=== PATIENT | male | born 1935 | race Caucasian/White ===

== ENCOUNTER 2018-04-13 07:57 | Inpatient (IN) | payer OTHER ==
[~2018-04-13] VITALS: Ht 177.8 cm; Wt 97.7 kg
[~2018-04-13 07:57] MED LIST: ASPI325; ASPI325 PO; ATEN25 PO; ATENOLOL 25 MG PO; BISA10S PR; CEFP200; CEPH250A PO; CHLO25B PO; Chlorthalidone25 MG PO; DOCU100 PO; FISH OIL 1,0001 EAC1 PO; GABA100 PO; GABA300 PO; Hair, Skin & N1 EACH PO; INSULANPEN SC; Klor-Con 1010 MEQ PO; LEVSOD100 PO; MEMA10 PO; METF500C PO; MIRALAX17 GM PO; MULVITMIND PO; POTA10T PO; RANI150; ROSU5 PO; SACC250C; SIMVASTATIN 20 MG PO; Simvastatin10 MG PO; TAMS.4ER PO
[2018-04-13 08:52] LABS: Source, Urine Catheter
[2018-04-13 09:08] LABS: Albumin, Blood 3.3 g/dL (3.4-5.0); Albumin/Globulin Ratio 0.9 (0.8-1.8); Bilirubin, Total 0.8 mg/dL (0.1-1.0); Bun/Creatinine Ratio 15.8 (12.0-20.0); Calcium, Blood 8.7 mg/dL (8.5-10.1); Creatinine, Blood 1.46 mg/dL (0.60-1.20); Globulin, Blood 3.6 g/dL (2.2-4.0); Potassium, Blood 4.3 mmol/L (3.5-5.5); Total Protein, Blood 6.9 g/dL (6.4-8.2)
[2018-04-13 09:08] LABS: Appearance, Urine Turbid (Clear); Bilirubin, Urine Neg (Neg); Blood, Urine 3+ (Neg); Color, Urine Yellow (P-Yellow); Glucose Qualitative, Urine Neg (Neg); Ketones, Urine 1+ (Neg); Leukocyte Esterase, Urine 3+ (Neg); Nitrite, Urine Pos (Neg); Protein, Urine 4+ (Neg); Specific Gravity, Urine 1.015 (1.003-1.022); Urobilinogen, Urine NORM (Normal)
[2018-04-13 09:20] LABS: BASOPHILS ABSOLUTE AUTO 0.06 K/mm3 (0.00-0.23); BASOPHILS PERCENT AUTO 0 % (0-2); EOSINOPHILS PERCENT AUTO 1 % (0-6); Hemoglobin 17.6 g/dL (13.5-17.5); IMMATURE GRAN ABSOLUTE AUTO 0.07 K/mm3 (0.00-0.10); IMMATURE GRAN PERCENT AUTO 0 % (0-1); LYMPHOCYTES ABSOLUTE AUTO 2.22 K/mm3 (0.84-5.20); LYMPHOCYTES PERCENT AUTO 14 % (21-46); MONOCYTES ABSOLUTE AUTO 1.38 K/mm3 (0.16-1.47); MONOCYTES PERCENT AUTO 9 % (4-13); Mean Corpuscular HGB 29.2 pg (26.0-34.0); Mean Corpuscular HGB Conc 32.6 g/dL (31.5-36.5); Mean Corpuscular Volume 90 fL (80-100); Mean Platelet Volume 11.2 fL (9.1-12.4); NEUTROPHILS ABSOLUTE AUTO 11.93 K/mm3 (1.96-9.15); NEUTROPHILS PERCENT AUTO 75 % (41-73); Platelet Count 286 K/mm3 (150-400); RDW Coefficient Variation 13.8 % (11.7-14.2); RDW Standard Deviation 45.3 fL (35.1-46.3); Red Blood Cell Count 6.03 M/mm3 (4.30-5.90); White Blood Cell Count 15.86 K/mm3 (4.00-11.30)
[2018-04-13 09:25] LABS: Amorphous Mod (0-Heavy); Bacteria Mod /hpf; Squamous Epithelial Cells Rare /hpf (Few); White Blood Cells, Urine 25-50 /hpf (0-5)
[2018-04-13 09:26] LABS: Triple Phosphate Crystals Many /hpf
--- NOTE | 2018-04-13 16:34 | NUR ---
REQUESTED PT PERMISSION FOR CARE, PT NODDED ACKNOWLEDGE AND GAVE PERMISSION WELL FOR CLINICAL DAY 04/14/18 PM SHIFT.
--- NOTE | 2018-04-13 17:33 | NUR ---
SHIFT SUMMARY PATIENT PLEASANTLY CONFUSED. HE CURRENTLY HAS IV FLUIDS HUNG AND HE IS IN SOFT WRIST RESTRAINTS. HE IS PLEASANT, AND WILL NEED CONTINUED MONITORING. HE DOES GET COMBATIVE, TRYING TO TALK PATIENT THROUGH ANY PROCEDURES. HE DOES NOT COMMUNICATE VERBALLY WITH SENTENCES. HE DOES A LOT OF REPEATING. WILL MONITOR FOR CHANGES. PATIENT HAS CHRONIC LLOYD.
--- NOTE | 2018-04-13 20:54 | NUR ---
PT'S BLOOD PRESSURE ELEVATED AT 177/113 AND HR CONTINUES TO BE IN THE 130'S. LACTIC ACID TODAY ELEVATED AT 3.0 AT 1300. UP FROM FIRST DRAW OF 2.6. APPEARS IN CHARTING THAT PT ONLY RECIEVED 1 L FOR SEPSIS PROTOCOL IN ED. CALL MADE TO JERRI MENDOZA. PT HAD BEEN DISCHARGED W/ ORDERS FOR METPROLOL TARTRATE 12.5 MG BID AND PT HAD NOT BEEN RECIEVING. ORDERS TO RESTART METOPROLOL THIS EVENING, GIVE A DOSE OF 10 MG IV HYDRALAZINE, AND 1 L NS BOLUS. WILL ADMINISTER ONCE VERIFIED BY PHARMACY AND CONTINUE TO MONITOR.
[2018-04-14 02:33] LABS: BASOPHILS ABSOLUTE AUTO 0.08 K/mm3 (0.00-0.23); BASOPHILS PERCENT AUTO 0 % (0-2); EOSINOPHILS ABSOLUTE AUTO 0.02 K/mm3 (0.00-0.68); EOSINOPHILS PERCENT AUTO 0 % (0-6); Hematocrit 50.7 % (37.0-53.0); IMMATURE GRAN ABSOLUTE AUTO 0.24 K/mm3 (0.00-0.10); IMMATURE GRAN PERCENT AUTO 1 % (0-1); LYMPHOCYTES ABSOLUTE AUTO 1.67 K/mm3 (0.84-5.20); LYMPHOCYTES PERCENT AUTO 8 % (21-46); MONOCYTES ABSOLUTE AUTO 2.04 K/mm3 (0.16-1.47); MONOCYTES PERCENT AUTO 9 % (4-13); Mean Corpuscular HGB Conc 33.5 g/dL (31.5-36.5); Mean Corpuscular Volume 90 fL (80-100); Mean Platelet Volume 10.9 fL (9.1-12.4); NEUTROPHILS ABSOLUTE AUTO 17.96 K/mm3 (1.96-9.15); NEUTROPHILS PERCENT AUTO 82 % (41-73); Platelet Count 305 K/mm3 (150-400); RDW Coefficient Variation 14.2 % (11.7-14.2); RDW Standard Deviation 46.3 fL (35.1-46.3); Red Blood Cell Count 5.66 M/mm3 (4.30-5.90); White Blood Cell Count 22.01 K/mm3 (4.00-11.30)
[2018-04-14 02:35] LABS: Albumin, Blood 3.1 g/dL (3.4-5.0); Anion Gap 9 mmol/L (6-16); Blood Urea Nitrogen 21 mg/dL (8-24); Bun/Creatinine Ratio 12.7 (12.0-20.0); CO2, Blood 20 mmol/L (21-32); Calcium, Blood 8.2 mg/dL (8.5-10.1); Chloride, Blood 118 mmol/L (98-108); Creatinine, Blood 1.65 mg/dL (0.60-1.20); Glomerular Filtration Rate 43 (60-); Glucose, Blood 181 mg/dL (70-99); Phosphorus, Blood 1.4 mg/dL (2.5-4.9); Potassium, Blood 3.8 mmol/L (3.5-5.5); Sodium, Blood 147 mmol/L (136-145)
--- NOTE | 2018-04-14 03:43 | NUR ---
SHIFT SUMMARY PT HAS LATER STAGES OF DEMENTIA, ONLY ORIENTED TO SELF. MINIMALLY VERBAL, MOST OFTEN HIS SPEECH DOESN'T MAKE SENSE. APPARENTLY THIS IS PT'S BASELINE. PT ALSO BEDBOUND AT BASELINE. PT HAS BEEN IN BED SINCE ARRIVAL. TURNED AND CHANGED NEEDED. LLOYD CATHETER IN PLACE, DRAINING DARK, CLOUDY, THICK URINE. LEAKS SLIGHTLY FROM INSERTION POINT BUT PT HAD PREVIOUSLY BEEN PULLING ON HIS CATHETER AND IT LOOKS IF THERE IS SOME PENILE DAMAGE FROM THIS. PENIS AND SCROTUM BOTH RED AND PENIS HAS SOME DISCHARGE. NO BLOOD NOTED. PT IS IN BILATERAL WRIST RESTRAINTS DUE TO HIS CONFUSION AND PT PULLS ON LINES AND TELEMETRY. PT DIAPHORETIC AT TIMES, HOWEVER TEMPERATURE IN THE LOW 99'S THROUGHOUT THE SHIFT. PT TACHYCARDIC AND HYPERTENSIVE AT START OF SHIFT, SOME CONCERN ALSO WITH LACTIC ACID TRENDING UP. SEE NOTE. AFTER HOME DOSE OF METOPROLOL 12.5 MG PO, 10 MG APRESOLINE, 1 L NS BOLUS, AND FINALLY A DOSE OF 10 MG IV LABETALOL PT'S BLOOD PRESSURE IMPROVED TO 143/90 AND HR CAME DOWN FROM THE 120'S-130'S TO 105. LACTIC ACID ALSO IMPROVED TO 2.5 AND THEN TO WNL AT 2.0. PT AWAKE MUCH OF THE NIGHT, FIDGETS AND PULLS ON ANYTHING HE CAN REACH. FINALLY FELL ASLEEP APPROX 0330. RESTING IN BED AT THIS TIME. WILL CONTINUE TO MONITOR AND REPORT TO DAY RN.
--- NOTE | 2018-04-14 12:15 | NUR ---
TALKED TO ABOUT CONTINUING RESTRAINTS. OK TO REORDER.
[2018-04-14 14:47] LABS: Source, Urine Catheter
[2018-04-14 14:58] LABS: Appearance, Urine Cloudy (Clear); Bilirubin, Urine Neg (Neg); Blood, Urine 5+ (Neg); Color, Urine Yellow (P-Yellow); Glucose Qualitative, Urine Neg (Neg); Ketones, Urine 1+ (Neg); Leukocyte Esterase, Urine 3+ (Neg); Nitrite, Urine Pos (Neg); Protein, Urine 3+ (Neg); Specific Gravity, Urine 1.015 (1.003-1.022); Urobilinogen, Urine NORM (Normal)
[2018-04-14 15:20] LABS: Bacteria Many /hpf; Red Blood Cells, Urine TNTC /hpf (0-2); Squamous Epithelial Cells Not Seen /hpf (Few); White Blood Cells, Urine TNTC /hpf (0-5)
--- NOTE | 2018-04-14 15:43 | NUR ---
BLADDER IRRIGATED WITH 500 ML NACL TO ALMOST CLEAR. TOLERATED WELL.
--- NOTE | 2018-04-14 17:56 | NUR ---
PATIENT ALERT TO SELF AND FAMILY AND SOMETIMES WHERE HE IS. LLOYD CHANGED OUT AND IRRIGATED WITH URINE SAMPLE SENT TO LAB PER PROTOCOL. WRIST RESTRAINTS RENEWED PATIENT HANDS GO TO LINES AND HE TRIES TO PULL WHEN RESTRAINTS ARE LOOSENED. PER PHARM. FLOMAX CAN BE OPENED AND PUT INTO ACID JUICE(O.J. OR GRAPE) OR IN YOGURT FOR THOSE WHO NEED MEDS CRUSHED. SOMETIMES ANSWERS QUESTIONS APPROPRIATELY, OTHER TIMES WORDS ARE JUMBLED. IV'S PATENT. LLOYD PATENT AND NOT LEAKING. BED IN LOW POSITION. CALL LIGHT WITHIN REACH. TELE ON. WILL CONTINUE TO MONITOR.
--- NOTE | 2018-04-15 05:05 | NUR ---
SHIFT SUMMARY PT HAS SLEPT THROUGHOUT SHIFT. PT GABINO IS FLOWING FINE. PT IS STILL IN WRIST RESTRAINTS. NO ACUTE ISSUES NOTED. PT CURRENTLY SLEEPING. CALL LIGHT IN REACH.
[2018-04-15 09:41] LABS: BASOPHILS ABSOLUTE AUTO 0.05 K/mm3 (0.00-0.23); BASOPHILS PERCENT AUTO 0 % (0-2); EOSINOPHILS ABSOLUTE AUTO 0.85 K/mm3 (0.00-0.68); EOSINOPHILS PERCENT AUTO 7 % (0-6); Hematocrit 46.4 % (37.0-53.0); Hemoglobin 14.7 g/dL (13.5-17.5); IMMATURE GRAN ABSOLUTE AUTO 0.07 K/mm3 (0.00-0.10); IMMATURE GRAN PERCENT AUTO 1 % (0-1); LYMPHOCYTES ABSOLUTE AUTO 2.07 K/mm3 (0.84-5.20); LYMPHOCYTES PERCENT AUTO 16 % (21-46); MONOCYTES ABSOLUTE AUTO 0.75 K/mm3 (0.16-1.47); MONOCYTES PERCENT AUTO 6 % (4-13); Mean Corpuscular HGB 29.4 pg (26.0-34.0); Mean Corpuscular HGB Conc 31.7 g/dL (31.5-36.5); Mean Platelet Volume 10.8 fL (9.1-12.4); NEUTROPHILS ABSOLUTE AUTO 9.19 K/mm3 (1.96-9.15); NEUTROPHILS PERCENT AUTO 71 % (41-73); Platelet Count 218 K/mm3 (150-400); RDW Coefficient Variation 14.6 % (11.7-14.2); RDW Standard Deviation 49.6 fL (35.1-46.3); White Blood Cell Count 12.98 K/mm3 (4.00-11.30)
[2018-04-15 09:43] LABS: Mean Corpuscular Volume 93 fL (80-100)
[2018-04-15 09:58] LABS: Anion Gap 7 mmol/L (6-16); Blood Urea Nitrogen 16 mg/dL (8-24); Bun/Creatinine Ratio 13.7 (12.0-20.0); CO2, Blood 21 mmol/L (21-32); Chloride, Blood 120 mmol/L (98-108); Creatinine, Blood 1.17 mg/dL (0.60-1.20); Glomerular Filtration Rate >60 (60-); Glucose, Blood 185 mg/dL (70-99); Potassium, Blood 3.4 mmol/L (3.5-5.5); Sodium, Blood 148 mmol/L (136-145)
--- NOTE | 2018-04-15 13:18 | NUR ---
INITIAL PALLIATIVE CARE CLINICAL VISIT: Introduced myself to pt and . Pt states, "I have never seen you before". I confirmed with pt that we have not met previously. Pt is sitting up in bed with soft wrist restraints on. points out that his left wrist is not actually tied to bed/secured. Pt is not actively pulling on retraints or moving about in bed. He appears anxious but not agitated. When asked if he is feeling any discomfort or pain, pt states "no". Discussed 's concerns and needs. She is very happy about pt's improvement in mentation and decreased agitation since admission on Saturday. She reports having help at home thru [employer] [facility]. She also has [facility] visiting for cath care. Her primary concern is how to get pt home when he is released. SHe has a wheelchair but is unsure if she can get him in the house. Leslye ECHOLS had been to visit and left her name on room's white board. left for Leslye re: possible need for gurney transport or assist with transport home on d/c. Pt's was leaving for lunch when I arrived. Would like to continue the conversation with her tomorrow re: goals of care and ongoing care planning if she is receptive. She feels pt is close to his baseline currently in regard to his normal level of confusion with his dementia.
--- NOTE | 2018-04-15 13:27 | NUR ---
PT GAVE ME PERMISSION TO PROVIDE CARE FOR HIM 04/16/18.
[2018-04-16 05:12] LABS: BASOPHILS ABSOLUTE AUTO 0.05 K/mm3 (0.00-0.23); BASOPHILS PERCENT AUTO 0 % (0-2); EOSINOPHILS ABSOLUTE AUTO 0.75 K/mm3 (0.00-0.68); EOSINOPHILS PERCENT AUTO 7 % (0-6); Hematocrit 44.2 % (37.0-53.0); Hemoglobin 13.8 g/dL (13.5-17.5); IMMATURE GRAN ABSOLUTE AUTO 0.05 K/mm3 (0.00-0.10); IMMATURE GRAN PERCENT AUTO 0 % (0-1); LYMPHOCYTES ABSOLUTE AUTO 2.05 K/mm3 (0.84-5.20); LYMPHOCYTES PERCENT AUTO 18 % (21-46); MONOCYTES ABSOLUTE AUTO 0.79 K/mm3 (0.16-1.47); MONOCYTES PERCENT AUTO 7 % (4-13); Mean Corpuscular HGB 29.2 pg (26.0-34.0); Mean Corpuscular HGB Conc 31.2 g/dL (31.5-36.5); Mean Corpuscular Volume 93 fL (80-100); Mean Platelet Volume 10.4 fL (9.1-12.4); NEUTROPHILS ABSOLUTE AUTO 7.75 K/mm3 (1.96-9.15); NEUTROPHILS PERCENT AUTO 68 % (41-73); Platelet Count 235 K/mm3 (150-400); RDW Coefficient Variation 14.1 % (11.7-14.2); RDW Standard Deviation 48.6 fL (35.1-46.3); Red Blood Cell Count 4.73 M/mm3 (4.30-5.90); White Blood Cell Count 11.44 K/mm3 (4.00-11.30)
--- NOTE | 2018-04-16 05:49 | NUR ---
SHIFT SUMMARY PT ADMITTED WITH SEPSIS. DNR. [facility] SOFT GROUND MEAT ADA DIET, HONEY THICK LIQUIDS. PT ON BEDREST AND PER REPORT HAS BEEN BEDBOUND FOR THE PAST 2 MONTHS. CBG AT AND H S. TELE, SINUS TACH. LOVENOX FOR DVT PROPHYLAXIS. MEDS CRUSHED. PT WAS IN RESTRAINTS BUT THEY WERE DISCONTINUED YESTERDAY. APPARENT THE PT HAD BEEN PULLING AT LINES AND CATHETER. THE PT PRESENTED TO THE ED WITH C/O PENILE PAIN, CLOUDY URINE, AND SWEATS. THE PT HAS HAD AN INDWELLING LLOYD FOR THE PAST SEVERAL MONTHS. THERE HAS BEEN CONCEARN DUE TO BLEEDING FROM THE INSERTION SITE AND IT HAS BEEN THOUGHT THAT THE PT MAY HAVE PULLED ON IT. THE URINE HAD BEEN THICK, CLOUDY, AND FOUL ODOR. 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 UNABLE TO ADMINISTER PTS JOCE MEDICATIONS. PT WAS ATTEMPTING TO SWING AT AND GRAB THIS NURSE. WAS TOLD THAT PT IS NOT COMBATIVE BUT IS VERY STRONG AND WAS HITTING AWAY THE SPOON WHEN ATTEMPTING TO GIVE FLUID PRIOR TO ADMINISTRATION MEDICATION TO ASSESS FOR SAFETY. ABLE TO GIVE 0600 MED WITHOUT INCIDENT. THE PT APPEARED TO SLEEP COMFORTABLY MOST OF THE NIGHT. NO APPARENT SIGNS OF ACUTE DISTRESS. FREQUENT VISUAL CHECKS PT IS LIKELY NOT ABLE TO MAKE NEEDS KNOWN.
[2018-04-16 06:10] LABS: Alanine Aminotransfer (ALT/SGP 37 U/L (12-78); Albumin, Blood 2.4 g/dL (3.4-5.0); Albumin/Globulin Ratio 0.7 (0.8-1.8); Alk Phos 59 U/L (50-136); Anion Gap 8 mmol/L (6-16); Aspartate Aminotrans (AST/SGOT 27 U/L (12-37); Bilirubin, Total 0.4 mg/dL (0.1-1.0); Blood Urea Nitrogen 16 mg/dL (8-24); Bun/Creatinine Ratio 14.4 (12.0-20.0); CO2, Blood 24 mmol/L (21-32); Calcium, Blood 8.1 mg/dL (8.5-10.1); Chloride, Blood 117 mmol/L (98-108); Creatinine, Blood 1.11 mg/dL (0.60-1.20); Globulin, Blood 3.4 g/dL (2.2-4.0); Glomerular Filtration Rate >60 (60-); Glucose, Blood 133 mg/dL (70-99); Potassium, Blood 3.3 mmol/L (3.5-5.5); Sodium, Blood 149 mmol/L (136-145); Total Protein, Blood 5.8 g/dL (6.4-8.2)
--- NOTE | 2018-04-16 17:26 | NUR ---
SHIFT SUMMARY- PT AXO TO SELF, FOLLOWING SIMPLE COMMANDS AND FAMILY. PT ABLE TO ANSWER YES/NO QUESTIONS. PT DENIES PAIN. DENIES SOB. RESP E/U ON RA. DENIES N/V. BEDREST. TURNS Q2H. NO INSULIN COVERAGE NEEDED THIS SHIFT. LLOYD PATENT AND DRAINING. NSR AT 92 PER PCU ALTERATION SPECIALIST. PT'S IN TO SEE HIM TODAY. PT STARTED ON D5 1/2 NS WITH 20 MEQ K AT 125ML/HR. NO OTHER SIGNIFICANT CHANGES THIS SHIFT.
--- NOTE | 2018-04-17 05:29 | NUR ---
SHIFT SUMMARY PT NOTED TO HAVE A COUGH THIS NIGHT. REPOSITIONED, ORAL CARE COMPLETED, ELEVATED HOB, WITH NO CHANGE IN APPARENT COUGH. UPON ASSESSMENT PT APPEARED TO BE CHEWING ON SOMETHING FOLLOWING COUGH, ORAL CARE COMPLETED AND ONLY THICK SALIVA NOTED WITH SOME FOOT PARTICLES. PT WAS VERY PLEASENT AND COOPERATIVE SO FAR THIS SHIFT. NO COMPATIVE OR GRABING BEHAVIORS. AT BEGINNING OF SHIFT THE APPEARED CONCEARNED AND STATED THAT DAY NURSE ATTEMPTED TO GIVE PT WHOLE PILLS AND THIN LIQUIDS. WANTED TO KNOW IF THIS NURSE KNEW THAT PT NEEDED MEDS CRUSHED, THICK LIQUIDS, AND NO STRAW. THE PTS WAS REASSURED BY TREATMENT RN AT THE TIME AND WENT HOME FOR THE DAY. THE PT APPEARS TO BE RESTING COMFORTABLY IN BED AT THIS TIME. UNABLE TO MAKE NEEDS KNOWN. FREQUENT VISUAL CHECKS.
[2018-04-17 05:30] LABS: BASOPHILS ABSOLUTE AUTO 0.03 K/mm3 (0.00-0.23); BASOPHILS PERCENT AUTO 0 % (0-2); EOSINOPHILS ABSOLUTE AUTO 0.52 K/mm3 (0.00-0.68); EOSINOPHILS PERCENT AUTO 6 % (0-6); Hemoglobin 14.5 g/dL (13.5-17.5); IMMATURE GRAN ABSOLUTE AUTO 0.04 K/mm3 (0.00-0.10); IMMATURE GRAN PERCENT AUTO 0 % (0-1); LYMPHOCYTES PERCENT AUTO 16 % (21-46); MONOCYTES ABSOLUTE AUTO 0.78 K/mm3 (0.16-1.47); MONOCYTES PERCENT AUTO 9 % (4-13); Mean Corpuscular HGB 29.8 pg (26.0-34.0); Mean Corpuscular HGB Conc 32.2 g/dL (31.5-36.5); Mean Corpuscular Volume 92 fL (80-100); Mean Platelet Volume 10.1 fL (9.1-12.4); NEUTROPHILS ABSOLUTE AUTO 6.19 K/mm3 (1.96-9.15); NEUTROPHILS PERCENT AUTO 69 % (41-73); Platelet Count 227 K/mm3 (150-400); RDW Coefficient Variation 14.2 % (11.7-14.2); RDW Standard Deviation 48.6 fL (35.1-46.3); Red Blood Cell Count 4.87 M/mm3 (4.30-5.90); White Blood Cell Count 8.96 K/mm3 (4.00-11.30)
[2018-04-17 05:55] LABS: Anion Gap 9 mmol/L (6-16); Blood Urea Nitrogen 15 mg/dL (8-24); Bun/Creatinine Ratio 13.3 (12.0-20.0); CO2, Blood 23 mmol/L (21-32); Calcium, Blood 8.2 mg/dL (8.5-10.1); Chloride, Blood 113 mmol/L (98-108); Creatinine, Blood 1.13 mg/dL (0.60-1.20); Glomerular Filtration Rate >60 (60-); Glucose, Blood 143 mg/dL (70-99); Potassium, Blood 3.2 mmol/L (3.5-5.5); Sodium, Blood 145 mmol/L (136-145)
--- NOTE | 2018-04-17 18:23 | NUR ---
SHIFT SUMMARY PT HAS HAD NO ACUTE CHANGES THIS SHIFT, MEDICATED FOR FEVER X1, PT REPORTS "I DON'T FEEL GOOD". REMAINS TO HAVE WET COUGH. REPOS Q2, SPOUSE ASSISTED W/MEALS. PT BEDRESTING W/SPOUSE AT BEDSIDE, WILL CONT TO MONITOR UNTIL REPORT GIVEN TO NOC RN.
--- NOTE | 2018-04-18 03:22 | NUR ---
SHIFT SUMMARY PT PLEASANTLY CONFUSED. SLEPT THROUGH MOST OF THE NIGHT. COUGHING IMPROVED THIS EVENING. NECTAR THICK LIQUIDS PROVIDED WHEN AWAKE. SWALLOWED PILLS CRUSHED IN APPLESAUCE. COOPERATIVE W/ CARE. LLOYD CATH REMAINS IN PLACE. DRAINING YELLOW URINE. NO SEDIMENT NOTED IN URINE. DENIES PAIN WHEN ASKED AND HAS NO NONVERBAL S/S OF PAIN. NO ACUTE CHANGES THROUGHOUT THE NIGHT. RESTING IN BED, APPEARS TO BE SLEEPING AT THIS TIME.
--- NOTE | 2018-04-18 04:45 | NUR ---
ASSUMING CARE OF PT. PT A&O TO SELF ONLY. PLEASANTLY CONFUSED, BED ALARM ON. CALL LIGHT IN REACH.
[2018-04-18 05:25] LABS: BASOPHILS ABSOLUTE AUTO 0.04 K/mm3 (0.00-0.23); BASOPHILS PERCENT AUTO 1 % (0-2); EOSINOPHILS ABSOLUTE AUTO 0.46 K/mm3 (0.00-0.68); EOSINOPHILS PERCENT AUTO 7 % (0-6); Hematocrit 45.3 % (37.0-53.0); Hemoglobin 14.5 g/dL (13.5-17.5); IMMATURE GRAN ABSOLUTE AUTO 0.03 K/mm3 (0.00-0.10); IMMATURE GRAN PERCENT AUTO 0 % (0-1); LYMPHOCYTES ABSOLUTE AUTO 1.44 K/mm3 (0.84-5.20); LYMPHOCYTES PERCENT AUTO 21 % (21-46); MONOCYTES ABSOLUTE AUTO 0.89 K/mm3 (0.16-1.47); MONOCYTES PERCENT AUTO 13 % (4-13); Mean Corpuscular HGB 29.5 pg (26.0-34.0); Mean Corpuscular Volume 92 fL (80-100); Mean Platelet Volume 9.9 fL (9.1-12.4); NEUTROPHILS ABSOLUTE AUTO 3.87 K/mm3 (1.96-9.15); NEUTROPHILS PERCENT AUTO 58 % (41-73); Platelet Count 205 K/mm3 (150-400); Red Blood Cell Count 4.91 M/mm3 (4.30-5.90); White Blood Cell Count 6.73 K/mm3 (4.00-11.30)
[2018-04-18 05:50] LABS: Alanine Aminotransfer (ALT/SGP 47 U/L (12-78); Albumin, Blood 2.5 g/dL (3.4-5.0); Albumin/Globulin Ratio 0.7 (0.8-1.8); Alk Phos 68 U/L (50-136); Anion Gap 7 mmol/L (6-16); Aspartate Aminotrans (AST/SGOT 29 U/L (12-37); Bilirubin, Total 0.5 mg/dL (0.1-1.0); Blood Urea Nitrogen 17 mg/dL (8-24); Bun/Creatinine Ratio 14.9 (12.0-20.0); CO2, Blood 26 mmol/L (21-32); Calcium, Blood 8.3 mg/dL (8.5-10.1); Chloride, Blood 111 mmol/L (98-108); Creatinine, Blood 1.14 mg/dL (0.60-1.20); Globulin, Blood 3.6 g/dL (2.2-4.0); Glomerular Filtration Rate >60 (60-); Glucose, Blood 146 mg/dL (70-99); Potassium, Blood 3.5 mmol/L (3.5-5.5); Sodium, Blood 144 mmol/L (136-145); Total Protein, Blood 6.1 g/dL (6.4-8.2)
--- NOTE | 2018-04-18 06:40 | NUR ---
SHIFT SUMMARY: NO ACUTE CHANGES SINCE ASSUMING CARE AT MID-SHIFT FROM RELIEVED RN. PT IS RESTING COMFORTABLY IN BED. RESP E/U ON RA. LLOYD CATH DRAINING AND PATENT. PLEASANTLY CONFUSED. WILL CONT TO MONITOR AND PROVIDE CARE UNTIL PRESUMED BY ONCOMING RN.
--- NOTE | 2018-04-18 16:40 | NUR ---
PT SPOUSE REPORTS THE PT IS HAVING TROUBLE BREATHING. VS 148/95 BP, HR 89, RR 24, O2 SAT 94% ON RA AND TEMP 101.0 TEMP. BREATHING LABORED. AUDIORY WHEEZES. LS DIM/COARSE T/O. NOTIFIED DR GOMEZ, NEW ORDER FOR LASIX IV 20MG NOW. WILL CONTINUE TO MONITOR.
--- NOTE | 2018-04-18 19:48 | NUR ---
VEW SCORE 4, VS TEMP 101.2 (DOWN FROM 102.0), HR 134, RR 20, BP 143/94 AND 92% ON RA. NOTIFIED DR LOCKE, NEW ORDERS ENTERED FOR TYLENOL Q4, IBUPROFEN ONE DOSE NOW, NPO, SPEECH EVAL, LEVAQUIN IV AND NORMAL SALINE 50ML/HR. REPROT GIVEN TO ONCOMING RN.
--- NOTE | 2018-04-18 19:51 | NUR ---
SHIFT SUMMARY PT A&OX1. PLEASANTLY CONFUSED. CALM AND COOPERATIVE WITH CARE. PT RESTING IN BED, Q2 TURN FOR COMFORT. PT DENIES PAIN. SOB THIS AFTERNOON, NOTIFIED DR GOMEZ, NEW ORDER FOR LASIX IV ONCE. BREATHING NO LONGER LABORED, >90% ON RA, RR DECREASED. LS EXP WHEEZES, DIM IN BASES. PT DENIES N/V DURING SHIFT. FEBRILE, 101.0, ADMINISTERED 650MG OF TYLENOL, REASSESSMENT AT 102.0 REMOVED BLANKETS AND ADDED ICE PACKS, REASSESSMENT AT 101.2, DR LOCKE NOTIFIED, NEW ORDERS ENTERED. PT RECEIVING ROCEPHIN IV DAILY, NEW ORDERS FOR LEVAQUIN DAILY THIS EVENING. VEW SCORE OF [address] LOCKE NEW ORDERS ENTERED. BP STABLE, HR TRENDING UP, RESP ELEVATED/SLIGHTLY LABORED, O2 SAT >90% ON RA AND FEBRILE. REPORT GIVEN TO ONCOMING RN.
[2018-04-19 06:06] LABS: BASOPHILS ABSOLUTE AUTO 0.05 K/mm3 (0.00-0.23); BASOPHILS PERCENT AUTO 1 % (0-2); EOSINOPHILS ABSOLUTE AUTO 0.53 K/mm3 (0.00-0.68); EOSINOPHILS PERCENT AUTO 6 % (0-6); Hematocrit 46.3 % (37.0-53.0); Hemoglobin 14.5 g/dL (13.5-17.5); IMMATURE GRAN ABSOLUTE AUTO 0.06 K/mm3 (0.00-0.10); IMMATURE GRAN PERCENT AUTO 1 % (0-1); LYMPHOCYTES ABSOLUTE AUTO 1.72 K/mm3 (0.84-5.20); LYMPHOCYTES PERCENT AUTO 20 % (21-46); MONOCYTES PERCENT AUTO 11 % (4-13); Mean Corpuscular HGB Conc 31.3 g/dL (31.5-36.5); Mean Corpuscular Volume 93 fL (80-100); Mean Platelet Volume 10.7 fL (9.1-12.4); NEUTROPHILS ABSOLUTE AUTO 5.45 K/mm3 (1.96-9.15); NEUTROPHILS PERCENT AUTO 62 % (41-73); Platelet Count 208 K/mm3 (150-400); RDW Coefficient Variation 14.3 % (11.7-14.2); RDW Standard Deviation 48.3 fL (35.1-46.3); White Blood Cell Count 8.81 K/mm3 (4.00-11.30)
[2018-04-19 06:24] LABS: Albumin, Blood 2.3 g/dL (3.4-5.0); Albumin/Globulin Ratio 0.6 (0.8-1.8); Bilirubin, Total 0.6 mg/dL (0.1-1.0); Bun/Creatinine Ratio 17.7 (12.0-20.0); Creatinine, Blood 1.24 mg/dL (0.60-1.20); Globulin, Blood 3.6 g/dL (2.2-4.0); Potassium, Blood 3.5 mmol/L (3.5-5.5); Total Protein, Blood 5.9 g/dL (6.4-8.2)
--- NOTE | 2018-04-19 06:40 | NUR ---
pt remains npo due to possible aspiration with fever, was on honey thick liquids and has long hx of dysphagia. ibuprofen 400 mg po x 1 given for fever with good relief. started iv fluids 50 ml hr. pennington patent drains large amts of clear yellow urine. pt refused pennington care. pt has hx of dementia, was alert and talkative this am. roomed in and supportive. sats greater than 90% on room. Speech therapy eval ordered. am med held due to pocketing and npo status
--- NOTE | 2018-04-19 16:31 | NUR ---
PATIENT CONTINUES TO DESAT UPON ANY EXERTION. HE REQUIRES ANYWHERE FROM 7-10 L O2. HAS HAD NO COMPLAINTS THIS SHIFT.
--- NOTE | 2018-04-19 16:42 | NUR ---
PATIENT HAS BEEN TALKATIVE THIS SHIFT. HE STILL IS CONFUSED BUT IS TALKING TO AND STAFF. NO ASPIRATIONS THIS SHIFT. AT BEDSIDE . PATIENT ON PUREE DIET.
--- NOTE | 2018-04-19 21:49 | NUR ---
PATIENT CBG 165; 1/2 NS INFUSING AT 125mL/HR; IV ABX INFUSED. DENIES PAIN, SOB, AND N/V. SPOUSE PRESENT IN ROOM.
--- NOTE | 2018-04-20 03:35 | NUR ---
SHIFT SUMMARY PATIENT HAD NO ACUTE CHANGES OBSERVED DURING THE SHIFT. AXOX TO SELF AND FAMILY. HX DEMENTIA. BEDFAST. TAKES MEDS CRUSHED IN APPLE SAUCE. TWO PIVS REMAIN INTACT. 1/2 NS INFUSING AT 125mL/HR/ CBG 165. LLOYD PATENT AND DRAINING. VSS/AFEBRILE. DENIES PAIN, SOB, AND N/V. SPOUSE PRESENT FULL SHIFT IN ROOM. CALL LIGHT IN REACH. BED IN LOWEST POSITION. WILL CONTINUE TO MONITOR UNTIL DAY SHIFT NURSE ASSUMES CARE.
[2018-04-20 05:27] LABS: BASOPHILS ABSOLUTE AUTO 0.03 K/mm3 (0.00-0.23); BASOPHILS PERCENT AUTO 0 % (0-2); EOSINOPHILS ABSOLUTE AUTO 0.56 K/mm3 (0.00-0.68); EOSINOPHILS PERCENT AUTO 7 % (0-6); Hematocrit 43.8 % (37.0-53.0); Hemoglobin 13.8 g/dL (13.5-17.5); IMMATURE GRAN ABSOLUTE AUTO 0.04 K/mm3 (0.00-0.10); IMMATURE GRAN PERCENT AUTO 1 % (0-1); LYMPHOCYTES ABSOLUTE AUTO 1.66 K/mm3 (0.84-5.20); LYMPHOCYTES PERCENT AUTO 21 % (21-46); MONOCYTES PERCENT AUTO 9 % (4-13); Mean Corpuscular HGB 29.2 pg (26.0-34.0); Mean Corpuscular HGB Conc 31.5 g/dL (31.5-36.5); Mean Corpuscular Volume 93 fL (80-100); Mean Platelet Volume 10.7 fL (9.1-12.4); NEUTROPHILS PERCENT AUTO 62 % (41-73); Platelet Count 216 K/mm3 (150-400); RDW Coefficient Variation 14.2 % (11.7-14.2); RDW Standard Deviation 48.4 fL (35.1-46.3); Red Blood Cell Count 4.72 M/mm3 (4.30-5.90); White Blood Cell Count 7.79 K/mm3 (4.00-11.30)
[2018-04-20 05:48] LABS: Anion Gap 8 mmol/L (6-16); Blood Urea Nitrogen 20 mg/dL (8-24); Bun/Creatinine Ratio 18.3 (12.0-20.0); CO2, Blood 26 mmol/L (21-32); Calcium, Blood 7.9 mg/dL (8.5-10.1); Chloride, Blood 108 mmol/L (98-108); Creatinine, Blood 1.09 mg/dL (0.60-1.20); Glomerular Filtration Rate >60 (60-); Glucose, Blood 120 mg/dL (70-99); Potassium, Blood 3.5 mmol/L (3.5-5.5); Sodium, Blood 142 mmol/L (136-145)
[2018-04-20] MEDS ORDERED: QUET25 PO (11:59)
[2018-04-20] MEDS ORDERED: METO25 PO (11:59)
[2018-04-20] MEDS ORDERED: LEVFLO500 PO (12:00)
--- NOTE | 2018-04-20 12:03 | NUR ---
Pt is alert, oriented. He denies pain, anxiety. is bedside. Reviewed POLST with both patient and family. Pt is currently DNR, however, his POLST indicates Full Code. confirms that he wants to be full code. POLST form is not changed at this time. Spoke to [facility] nurse. She reports that patient is now discharging with home health. No needs identified. Will remain available.
--- NOTE | 2018-04-20 12:58 | NUR ---
DISCHARGE SUMMARY PATIENT WAS DISCHARGED HOME WITH HOME HEALTH. ALL MEDICATIONS AND EDUCATION SENT WITH THE . PATIENT WAS TRANSPORTED BY AMBULANCE BACK TO THE HOME. NO ACUTE CONCERNS PRIOR TO DISCHARGE.
== END 2018-04-20 12:50 | disposition home health service (06) | DRG 698 ==
LOC: ER 07:57 → MEDS 11:12
PROVIDERS: Emergency Medicine; Internal Medicine; ADMIT Internal Medicine
DX: T83.511A Infection and inflammatory reaction due to indwelling urethral catheter, initial encounter (principal); R53.2 Functional quadriplegia; A41.9 Sepsis, unspecified organism; F02.81 Dementia in other diseases classified elsewhere, unspecified severity, with behavioral disturbance; G93.49 Other encephalopathy; G30.9 Alzheimer's disease, unspecified; I10 Essential (primary) hypertension; E03.9 Hypothyroidism, unspecified; M19.90 Unspecified osteoarthritis, unspecified site; E11.42 Type 2 diabetes mellitus with diabetic polyneuropathy; E78.5 Hyperlipidemia, unspecified; Z79.82 Long term (current) use of aspirin; E11.51 Type 2 diabetes mellitus with diabetic peripheral angiopathy without gangrene; E86.0 Dehydration; Z66 Do not resuscitate; I69.391 Dysphagia following cerebral infarction; Z74.01 Bed confinement status; N28.9 Disorder of kidney and ureter, unspecified; Y84.6 Urinary catheterization as the cause of abnormal reaction of the patient, or of later complication, without mention of misadventure at the time of the procedure
CPT/HCPCS: 36415; 71045; 80048; 80053; 80069; 81001; 82607; 82746; 82947; 83605; 84153; 84443; 85025; 87040; 87077; 87086; 87186; 92610; 93005; 93010; 96365; 99285-25; J0360; J0696; J1650; J1940; J1956; J3010; J7030; J7050

== ENCOUNTER 2018-05-01 09:13 | Inpatient (IN) | payer OTHER ==
[~2018-05-01] VITALS: Ht 170.2 cm; Wt 64.1 kg
[~2018-05-01 09:13] MED LIST changes: +LEVFLO500 PO; +METO25 PO; +QUET25 PO
[2018-05-01 09:50] LABS: BASOPHILS ABSOLUTE AUTO 0.05 K/mm3 (0.00-0.23); BASOPHILS PERCENT AUTO 0 % (0-2); EOSINOPHILS ABSOLUTE AUTO 0.26 K/mm3 (0.00-0.68); EOSINOPHILS PERCENT AUTO 2 % (0-6); Hematocrit 46.8 % (37.0-53.0); Hemoglobin 14.6 g/dL (13.5-17.5); IMMATURE GRAN ABSOLUTE AUTO 0.06 K/mm3 (0.00-0.10); IMMATURE GRAN PERCENT AUTO 1 % (0-1); LYMPHOCYTES ABSOLUTE AUTO 1.99 K/mm3 (0.84-5.20); LYMPHOCYTES PERCENT AUTO 17 % (21-46); MONOCYTES ABSOLUTE AUTO 1.17 K/mm3 (0.16-1.47); MONOCYTES PERCENT AUTO 10 % (4-13); Mean Corpuscular HGB 28.7 pg (26.0-34.0); Mean Corpuscular HGB Conc 31.2 g/dL (31.5-36.5); Mean Corpuscular Volume 92 fL (80-100); Mean Platelet Volume 10.1 fL (9.1-12.4); NEUTROPHILS ABSOLUTE AUTO 8.43 K/mm3 (1.96-9.15); NEUTROPHILS PERCENT AUTO 71 % (41-73); Platelet Count 374 K/mm3 (150-400); RDW Coefficient Variation 13.8 % (11.7-14.2); RDW Standard Deviation 46.9 fL (35.1-46.3); Red Blood Cell Count 5.08 M/mm3 (4.30-5.90); White Blood Cell Count 11.96 K/mm3 (4.00-11.30)
[2018-05-01 10:00] LABS: Alanine Aminotransfer (ALT/SGP 40 U/L (12-78); Albumin, Blood 2.6 g/dL (3.4-5.0); Albumin/Globulin Ratio 0.6 (0.8-1.8); Alk Phos 63 U/L (50-136); Anion Gap 7 mmol/L (6-16); Aspartate Aminotrans (AST/SGOT 30 U/L (12-37); Bilirubin, Total 0.8 mg/dL (0.1-1.0); Blood Urea Nitrogen 19 mg/dL (8-24); Bun/Creatinine Ratio 16.4 (12.0-20.0); CO2, Blood 24 mmol/L (21-32); Calcium, Blood 8.5 mg/dL (8.5-10.1); Chloride, Blood 112 mmol/L (98-108); Creatinine, Blood 1.16 mg/dL (0.60-1.20); Globulin, Blood 4.4 g/dL (2.2-4.0); Glomerular Filtration Rate >60 (60-); Glucose, Blood 138 mg/dL (70-99); Sodium, Blood 143 mmol/L (136-145)
[2018-05-01 10:31] LABS: Source, Urine Catheter
[2018-05-01 10:38] LABS: Bilirubin, Urine Neg (Neg); Blood, Urine 4+ (Neg); Glucose Qualitative, Urine Neg (Neg); Ketones, Urine 1+ (Neg); Leukocyte Esterase, Urine 3+ (Neg); Nitrite, Urine Pos (Neg); Protein, Urine 3+ (Neg); Urobilinogen, Urine 1+ (Normal)
[2018-05-01 10:43] LABS: Appearance, Urine Turbid (Clear); Color, Urine Yellow (P-Yellow)
[2018-05-01 10:52] LABS: Bacteria Many /hpf; Red Blood Cells, Urine TNTC /hpf (0-2); Squamous Epithelial Cells Not Seen /hpf (Few); White Blood Cells, Urine TNTC /hpf (0-5)
[2018-05-01] MEDS ORDERED: LEVSOD125 PO (12:10)
--- NOTE | 2018-05-01 16:00 | NUR ---
PT ADMITTED TO ROOM 362 VIA GURNEY WITH IN ATTENDANCE. TRANSFERRED VIA SLIDE SHEET AND SETTLED IN TO BED. MAKING MUMBLING SOUNDS OR ONE WORD RESPONSES TO SIMPLE QUESTIONS. HELPING WITH ADMISSION. REPORTS PT HOME FOR 1 WEEK SINCE LAST HOSPITAL ADMISSION.
--- NOTE | 2018-05-01 18:41 | NUR ---
SHIFT SUMMARY LLOYD REPLACED. REPOSTIONED. CURRENTLY NPO. REPORTS SHE THINKS HE SWALLOWS FINE WHEN FED PROPERLY. CURRENTLY APPEARS TO BE RESTING QUIETLY. NO RESP DISTRESS NOTED.
[2018-05-01 19:50] LABS: Adenovirus Not Detected (NOT DETECT); Bordetella pertussis Not Detected (NOT DETECT); Chlamydophila pneumoniae Not Detected (NOT DETECT); Coronavirus 229E Not Detected (NOT DETECT); Coronavirus HKU1 Not Detected (NOT DETECT); Coronavirus NL63 Not Detected (NOT DETECT); Coronavirus OC43 Not Detected (NOT DETECT); Human Metapneumovirus Not Detected (NOT DETECT); Human Rhinovirus/Enterovirus Not Detected (NOT DETECT); Influenza A Not Detected (NOT DETECT); Influenza A/2009-H1 Not Detected (NOT DETECT); Influenza A/H1 Not Detected (NOT DETECT); Influenza A/H3 Not Detected (NOT DETECT); Influenza B Not Detected (NOT DETECT); Mycoplasma pneumoniae Not Detected (NOT DETECT); Parainfluenza Virus 1 Not Detected (NOT DETECT); Parainfluenza Virus 2 Not Detected (NOT DETECT); Parainfluenza Virus 3 Not Detected (NOT DETECT); Parainfluenza Virus 4 Not Detected (NOT DETECT); Respiratory Syncytial Virus Not Detected (NOT DETECT)
[2018-05-02 05:32] LABS: BASOPHILS ABSOLUTE AUTO 0.07 K/mm3 (0.00-0.23); BASOPHILS PERCENT AUTO 1 % (0-2); EOSINOPHILS ABSOLUTE AUTO 0.44 K/mm3 (0.00-0.68); EOSINOPHILS PERCENT AUTO 4 % (0-6); Hematocrit 44.7 % (37.0-53.0); Hemoglobin 14.3 g/dL (13.5-17.5); IMMATURE GRAN ABSOLUTE AUTO 0.07 K/mm3 (0.00-0.10); IMMATURE GRAN PERCENT AUTO 1 % (0-1); LYMPHOCYTES ABSOLUTE AUTO 1.93 K/mm3 (0.84-5.20); LYMPHOCYTES PERCENT AUTO 16 % (21-46); MONOCYTES ABSOLUTE AUTO 1.07 K/mm3 (0.16-1.47); MONOCYTES PERCENT AUTO 9 % (4-13); Mean Corpuscular Volume 91 fL (80-100); Mean Platelet Volume 10.6 fL (9.1-12.4); NEUTROPHILS ABSOLUTE AUTO 8.28 K/mm3 (1.96-9.15); NEUTROPHILS PERCENT AUTO 70 % (41-73); Platelet Count 380 K/mm3 (150-400); RDW Coefficient Variation 13.7 % (11.7-14.2); RDW Standard Deviation 45.9 fL (35.1-46.3); Red Blood Cell Count 4.93 M/mm3 (4.30-5.90); White Blood Cell Count 11.86 K/mm3 (4.00-11.30)
[2018-05-02 06:02] LABS: Alanine Aminotransfer (ALT/SGP 37 U/L (12-78); Albumin, Blood 2.5 g/dL (3.4-5.0); Albumin/Globulin Ratio 0.6 (0.8-1.8); Alk Phos 61 U/L (50-136); Anion Gap 10 mmol/L (6-16); Aspartate Aminotrans (AST/SGOT 23 U/L (12-37); Bilirubin, Total 0.8 mg/dL (0.1-1.0); Blood Urea Nitrogen 21 mg/dL (8-24); Bun/Creatinine Ratio 18.6 (12.0-20.0); CO2, Blood 23 mmol/L (21-32); Calcium, Blood 8.5 mg/dL (8.5-10.1); Chloride, Blood 113 mmol/L (98-108); Creatinine, Blood 1.13 mg/dL (0.60-1.20); Globulin, Blood 4.3 g/dL (2.2-4.0); Glomerular Filtration Rate >60 (60-); Glucose, Blood 111 mg/dL (70-99); Potassium, Blood 3.7 mmol/L (3.5-5.5); Sodium, Blood 146 mmol/L (136-145); Total Protein, Blood 6.8 g/dL (6.4-8.2)
--- NOTE | 2018-05-02 06:12 | NUR ---
SHIFT SUMMARY: PT DIFFICULT TO AROUSE AT TIMES, AROUSING TO VERBAL AND PAINFUL STIMULI. ALERT TO SELF ONLY. MOSTLY NONVERBAL, ABLE TO SPEAK 1 - 2 WORDS AT A TIME. CONFUSED EXPRESSION ON FACE. STRICT NPO FOR ASPIRATION PRECAUTIONS. LS DIM T/O, RESP E/U ON RA. LLOYD CATHETER IN PLACE FOR RETENTION; NEW LLOYD PLACED UPON ADMISSION TO UNIT. DRAINING TURBID, YELLOW URINE. BEDBOUND AT BASELINE, Q2H TURNS. SKIN ASSESSMENT PERFORMED FOR SIGNS OF PRESSURE ULCER; NO SIGNS NOTED; SKIN C/D/I THROUGHOUT BODY. Q6H CBG PER ORDERS, NO ORDERS FOR INSULIN; BLOOD SUGARS HAVE BEEN STABLE. NO NONVERBAL INDICATORS OF PAIN OBSERVED. NS RUNNING @ 125 ML/HR. WILL CONT TO MONITOR AND PROVIDE CARE UNTIL PRESUMED BY ONCOMING RN.
--- NOTE | 2018-05-02 17:54 | NUR ---
SHIFT SUMMARY. ALERT, ORIENTATED TO SELF AND . PT DOES NOT FOLLOW COMMANDS OR ANSWER QUESTIONS APPROPRIATELY. CONTINUES WITH NPO SECONDARY TO FAILED BEDSIDE SWALLOW EVAL IN ER. PT'S REPORTS THAT SHE WANTS TO SPEAK WITH ST PRIOR TO MAKING A DECISION ON PLAN OF CARE. EDUCATED SEVERAL TIMES ABOUT PT'S NPO STATUS REASONING AND RISKS FOR PO INTAKE, AND OPTIONS FOR NON ORAL NURTRITION. CONTINUES WITH IV FLUIDS. NO S/SX OF DISTRESS OR DISCOMFORT. TURN SCHEDULE. HEELS FLOATED. ORAL AND CATH CARE COMPLETED. URINE IS LIGHTENING UP, BECOMING LESS DARK AND MORE CLEAR. AT BEDSIDE MOST OF SHIFT, SHE REPORTS THAT SHE WILL RETURNS AT 0730 TOMORROW. NO OTHER CHANGES.
--- NOTE | 2018-05-02 20:14 | NUR ---
at bedside talking to daughter on phone. pt states family live in [place] they don not have family here. pt speaking to daughter about her bills.she has them all over the able and asked for help. when we tried to address pt needs she would drift into relaying disatisfaction with speech therapy and why he was not eating. pt resting did expensive oral care no gag noted moderate tolerance. was unable to retain information very repetative and aggitated. will review with care managers and [facility] and [facility] Lewis for plan of care they have caregivers postpartum nurse . it apperas she is driving. may be time for family to intevene. advised her will get physican to help with decision on peg tube. may not be appropriate to consent. will ask her permission to call children.
--- NOTE | 2018-05-03 05:02 | NUR ---
NOC SHIFT SUMMARY PT HAS REMAINED IN BED THIS NIGHT, TURNED [id number]. LLOYD IS IN PLACE AND IS DRAINING. HAS HAD ONE BM. ORAL CARE WAS DONE BY BOTH MYSELF AND SUPERVISOR STAGE CARPENTRY. CALLED DR. AMANDA AND INFORMED HER THAT MEDS INCLUDING METOPROLOL WERE HELD PT IS NPO. PT RESTING IN BED AND APPEARS IN NO ACUTE DISTRESS. WILL CONTINUE TO MONITOR.
--- NOTE | 2018-05-03 10:13 | NUR ---
SPOKE WITH ST, SHE REPORTS THAT THE PT IS NOT ABLE TO CLOSE MOUTH AND IS NOT WANTING TO SWALLOW WHAT SO EVER. ST REPORTS THAT PT'S IS NOW MORE OPEN TO NON ORAL FEEDING SYSTEM OPTIONS.
--- NOTE | 2018-05-03 18:12 | NUR ---
SHIFT SUMMARY. PT CONTINUES WITH BASELINE COGNITION AND FUNCTIONING. NO S/SX OF DISTRESS OR DISCOMFORT OBSERVED. NO SOB, OR VOMITTING. DR. SOSA NOTIFIED OF 'S WANT TO PURSUE PEG TUBE. RECIEVED ORDERS FOR SURGERY CONSULT, DR. QUINTANILLA'S CALL SERVICE NOTIFIED. DR. QUINTANILLA PLACED NURSE NOTIFY TO HOLD LOVENOX 05/04/18, ORDER CHANGED ON EMAR TO NOT RESTART LOVENOX TILL 05/05/18. PT CONTINUES WITH STRICT NPO. ORAL ATTEMPTED 4 TIMES THIS SHIFT AND OTHER TIMES BY , EDUCATED ON ASPIRATION PRECAUTIONS DURING ORAL CARE. PT OFTEN BITES TOOTHETTE AND SUNTION, RESISTING ORAL CARE. AT BEDSIDE MOST OF SHIFT, SHE LEAVES AT NIGHT TO REST, SHE WILL BE AT BEDSIDE TOMORROW MORNING. IV ANTIBIOTIC CHANGED FROM ROCEPHIN TO ZOSYN TODAY. CONTINUES WITH NS IV AT 125ML/HR. LLOYD CATHETER DRAINING YELLOW/CLEAR URINE. TURN SCHEDULE TO PREVENT SKIN BREAKDOWN. NO OTHER CHANGES.
--- NOTE | 2018-05-04 06:52 | NUR ---
NOC SHIFT SUMMARY PT CONDITION REMAINS UNCHANGED THIS SHIFT. ORAL CARE WAS ATTEMPTED MULTIPLE TIMES. I WAS ABLE TO PERFORM ORAL CARE ONCE. OTHER TIMES PT BIT DOWN ON TOOTHETTE AND WOULD NOT ALLOW MORE. HIGH BP WAS TREATED ONCE WITH HYDRALAZINE BP IMPROVED FROM 176/103 TO 164/87. PT HAS BEEN TURNED [id number]. ORAL MEDS HAVE BEEN HELD PT IS STRICT NPO. CURRENTLY APPEARS IN NO ACUTE DISTRESS. WILL CONTINUE TO MONITOR.
--- NOTE | 2018-05-04 10:36 | NUR ---
suggest contacting dr richards in am to help with decision. pt has dementia, indwelling pennington and aspiration. pt FAST score is 20% poor canidate for peg tube
--- NOTE | 2018-05-04 18:18 | NUR ---
1800 ENTERED ROOM TO FIND PT WITH INCREASED RESPIRATIONS, DIAPHORETIC, AND APPEARING TO BE IN DISTRESS. PT IS NON VERBAL. IS AT BEDSIDE. VS OBTAINED, PT WITH TEMP 100.5, RR 33, HR 125, SPO2 95%. DR. SOSA NOTIFIED, RECIEVED ORDERS FOR STAT CXR AND BLOOD CULTURES, AND IT WAS REQUESTED THAT DR. LOCKE BE REQUESTED TO ASSESS PT HE WAS UNABLE AT THIS TIME. DR. LOCKE NOTIFIED, SHE REPORTED THAT SHE WOULD BE UP TO SEE THE PT NEXT. COOL WET WASH CLOTH APPLIED TO FOREHEAD, BLANKETS REMOVED. WILL CONTINUE TO MONITOR.
--- NOTE | 2018-05-04 19:15 | NUR ---
NEW IV STARTED, BLOOD CULTURES TAKEN, CXR COMPLETED. DR. LOCKE AT BEDSIDE, NEW ORDERS RECIEVED FOR NEBS, IV BOLUS, SOLUMEDROL, ABG, DEEP SUCTION POST FIRST NEB BY RT. RT NOTIFIED.
--- NOTE | 2018-05-04 19:21 | NUR ---
ALSO RECIEVED ORDERS FROM DR. LOCKE FOR TRANSFER TO U.
[2018-05-04 19:36] LABS: PO2 Arterial 83.2 mmHg (80-100); pH Blood Arterial 7.44 (7.35-7.45)
--- NOTE | 2018-05-04 23:59 | NUR ---
ASSUMED PT CARE AT 2024 PT ALERT; UNABLE TO ASSESS MENTATION PT IS NONVERBAL. ABLE TO BARELY ANSWER YES/NO QUESTIONS, BUT MAINLY ANSWERS "NO" PER . PT NOTED TO BE HEAVY, LABORED MOUTH BREATHING. AUDIBLE RATTLING AND CONGESTION. LUNG SOUNDS ARE COARSE T/O ALL LOBES. THOROUGH ORAL CARE PERFORMED WELL DEEP SUBGLOTTAL SUCTIONING WITH THICK, BROWN CHUNKS SUCCESSFULLY REMOVED FROM BACK OF THROAT. AFTER ORAL CARE AND SUCTIONING PATIENT ABLE TO BREATHE EASIER. UPON ARRIVAL PT'S BP WAS 174/82; HR 120-SINUS TACH; RR 26; WELL A LOW GRADE TEMP OF 99.2. TYLENOL ADMINISTERED PER ORDERS FOR FEVER; EFFECTIVE. TEMP IS NOW 98.2. IS AT BEDSIDE AND STATED PT ALREADY SOUNDS AND LOOKS MUCH BETTER. NS INFUSING AT 125MLS/HR WITH ZOSYN ANTIBIOTICS INFUSING Q6HRS. PT APPEARS COMFORTABLE AT THIS TIME; DOES NOT APPEAR TO BE IN ANY DISTRESS.
[2018-05-05 03:45] LABS: BASOPHILS ABSOLUTE AUTO 0.03 K/mm3 (0.00-0.23); BASOPHILS PERCENT AUTO 0 % (0-2); EOSINOPHILS ABSOLUTE AUTO 0.03 K/mm3 (0.00-0.68); EOSINOPHILS PERCENT AUTO 0 % (0-6); Hematocrit 46.6 % (37.0-53.0); Hemoglobin 14.7 g/dL (13.5-17.5); IMMATURE GRAN ABSOLUTE AUTO 0.07 K/mm3 (0.00-0.10); IMMATURE GRAN PERCENT AUTO 1 % (0-1); LYMPHOCYTES ABSOLUTE AUTO 0.91 K/mm3 (0.84-5.20); LYMPHOCYTES PERCENT AUTO 8 % (21-46); MONOCYTES ABSOLUTE AUTO 0.18 K/mm3 (0.16-1.47); MONOCYTES PERCENT AUTO 2 % (4-13); Mean Corpuscular HGB 28.7 pg (26.0-34.0); Mean Corpuscular HGB Conc 31.5 g/dL (31.5-36.5); Mean Corpuscular Volume 91 fL (80-100); Mean Platelet Volume 10.1 fL (9.1-12.4); NEUTROPHILS PERCENT AUTO 90 % (41-73); Platelet Count 365 K/mm3 (150-400); RDW Coefficient Variation 13.3 % (11.7-14.2); RDW Standard Deviation 44.9 fL (35.1-46.3); Red Blood Cell Count 5.12 M/mm3 (4.30-5.90); White Blood Cell Count 11.62 K/mm3 (4.00-11.30)
[2018-05-05 04:05] LABS: Anion Gap 14 mmol/L (6-16); Blood Urea Nitrogen 11 mg/dL (8-24); Bun/Creatinine Ratio 12.1 (12.0-20.0); CO2, Blood 19 mmol/L (21-32); Calcium, Blood 8.5 mg/dL (8.5-10.1); Chloride, Blood 110 mmol/L (98-108); Creatinine, Blood 0.91 mg/dL (0.60-1.20); Glomerular Filtration Rate >60 (60-); Glucose, Blood 172 mg/dL (70-99); Potassium, Blood 3.6 mmol/L (3.5-5.5); Sodium, Blood 143 mmol/L (136-145)
--- NOTE | 2018-05-05 06:33 | NUR ---
END OF SHIFT SUMMARY PT BREATHING MUCH EASIER; ORAL CARE PERFORMED EVERY FOUR HOURS WITH DEEP SUBGLOTTIC SUCTIONING. LUNG SOUNDS REMAIN COARSE/RHONCHI; HOWEVER, PT ISN'T LABORED BREATHING ANYMORE. SLEEPING SOUNDLY WITH AT BEDSIDE. NS INFUSING AT 125MLS/HR; CLINIMIX AT 75MLS/HR. PT APPEARS COMFORTABLE AT THIS TIME; DOES NOT APPEAR TO BE IN ANY DISTRESS AT THIS TIME.
--- NOTE | 2018-05-05 10:00 | NUR ---
ASSUMED CARE: REPORT RECEIVED FROM IDALIA Gorman RN. ASSUMED CARE OF THIS PT AT APPROX 0700. ON ASSESSMENT, THE PT IS RESTING QUIETLY. HE STS COMFORT & DENIES NEEDS/PAIN. PROVIDER, DR. LOCKE, HAS BEEN IN TO SEE THE PT THIS AM. STS HE MAY BE MED FLOOR STATUS AGAIN & DOES NOT NEED TELE. ORDERS HAVE BEEN PLACED. WILL CONTINUE TO MONITOR & UPDATE NEEDED.
--- NOTE | 2018-05-05 18:00 | NUR ---
SHIFT SUMMARY: NO ACUTE CHANGES THIS SHIFT. PT REMAINS CONFUSED, WHICH IS BASELINE. HIS HAS BEEN AT BEDSIDE T/O THE DAY & IS SUPPORTIVE W/ CARE. WHEN TURNING, THE PT WILL OCCASIONALLY GET FRIGHTENED & GRAB AT STAFF OR PUSH AGAINST THEM. LS ARE DIM T/O, PT REMAINS ON RA W/ O2 SATS > 92%. MONITOR SHOWS ST W/ HR 100-110s. THE PT IS NOW MED W/O TELE STATUS. HE REMAINS STRICT NPO FOR ASPIRATION RISK W/ CLINAMIX INFUSING ORDERED. CHRONIC LLOYD IS PATENT/DRAINING TEN COLORED URINE. CBGs HAVE BEEN INCREASING, WILL CALL PROVIDER TO REQUEST SS INSULIN COVERAGE. WILL CONTINUE TO MONITOR & REPORT OFF TO ONCOMING RN.
--- NOTE | 2018-05-05 19:15 | NUR ---
ASSUMED CARE OF PT REPORT RECEIVED FROM HORTENCIA HOWARD. PT RESTING IN BED WITH AT BEDSIDE. LUNG SOUNDS DIMINISHED THROUGHOUT. SATS 96% ON RA. PT ON STRICT NPO D/T ASPIRATION PNA AND POCKETING FOOD. ORAL CARE ORDERED Q4. SEE FULL SHIFT ASSESSMENT.
[2018-05-06 04:24] LABS: Albumin, Blood 2.4 g/dL (3.4-5.0); Albumin/Globulin Ratio 0.6 (0.8-1.8); Alk Phos 53 U/L (50-136); Anion Gap 9 mmol/L (6-16); Bilirubin, Total 0.4 mg/dL (0.1-1.0); Blood Urea Nitrogen 16 mg/dL (8-24); Bun/Creatinine Ratio 16.3 (12.0-20.0); CO2, Blood 24 mmol/L (21-32); Calcium, Blood 8.4 mg/dL (8.5-10.1); Chloride, Blood 112 mmol/L (98-108); Creatinine, Blood 0.98 mg/dL (0.60-1.20); Globulin, Blood 3.9 g/dL (2.2-4.0); Glomerular Filtration Rate >60 (60-); Potassium, Blood 3.2 mmol/L (3.5-5.5); Sodium, Blood 145 mmol/L (136-145); Total Protein, Blood 6.3 g/dL (6.4-8.2)
[2018-05-06 04:25] LABS: Alanine Aminotransfer (ALT/SGP 50 U/L (12-78); Aspartate Aminotrans (AST/SGOT 38 U/L (12-37); Glucose, Blood 212 mg/dL (70-99)
--- NOTE | 2018-05-06 06:10 | NUR ---
SHIFT SUMMARY NO ACUTE CHANGES OVERNIGHT. PT SLEPT WELL AND TOLERATED ORAL SUCTIONING/CLEANING WELL WITH THE ENCOURAGEMENT OF HIS . ALL PO MEDICATIONS HELD PER PHYSICIAN ORDER. PT COVERED WITH 2 UNITS INSULIN AT 0000 AND 0600. LLOYD PATENT AND DRAINING, 600 ML URINARY OUTPUT THIS SHIFT. VSS. WILL REPORT TO DAYSHIFT NURSE.
--- NOTE | 2018-05-06 12:59 | NUR ---
Met pt in bed resting , Pt. is doing much better offered prayers and blessed pt.
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
--- NOTE | 2018-05-06 17:37 | NUR ---
NO ACUTE CHANGES THROUGHOUT THIS SHIFT. HAD SEVERAL CONCERNS AND QUESTIONS TODAY - SPOKE WITH HER IN DEPTH, AND PALLIATIVE CARE ALSO CAME IN AND SPENT TIME WITH HER TODAY. PT HAS CONTINUED TO OCCASIONALLY HAVE VERBAL CONVERSATION, NON- SENSICAL CONVERSATION. POOR URINE OUTPUT, 350 CC, SEE I/O'S. CALL LIGHT WITHIN REACH. BED IN LOW POSITION. HAS BEEN IN THE ROOM FOR MOST OF THE DAY.
--- NOTE | 2018-05-06 19:15 | NUR ---
ASSUMED CARE OF PT PT ALERT AND ABLE TO SLOWLY ANSWER QUESTIONS VERBALLY. PT ORIENTED TO SELF. VSS, SPO2 93% ON ROOM AIR. PT HAS OCCASIONAL NONPRODUCTIVE COUGH. ORAL CARE AND SUCTIONING PERFORMED. PT'S AT BEDSIDE. CHRONIC LLOYD PATENT AND DRAINING. SEE FULL SHIFT ASSESSMENT.
--- NOTE | 2018-05-07 05:55 | NUR ---
SHIFT SUMMARY NO ACUTE CHANGES OVERNIGHT. PT COOPERATIVE AND ABLE TO APPROPRIATELY RESPOND TO QUESTIONS AND FOLLOW COMMANDS. PT AND SLEPT THROUGH THE NIGHT WITH NO ISSUES. PT NEEDED NO INSULIN COVERAGE THIS SHIFT. VSS ALL NIGHT. LLOYD PATENT AND DRAINING, 700 ML URINARY OUTPUT THIS SHIFT. WILL REPORT TO DAYSHIFT NURSE.
--- NOTE | 2018-05-07 07:48 | NUR ---
ASSUMED CARE / DR. SOSA: REPORT RECEIVED FROM KINGSLEY Max RN. ASSUMED CARE OF THIS PT AT APPROX 0700. ON ASSESSMENT, PT IS RESTING QUIETLY. HIS IS AT BEDSIDE. HE REMAINS ON RA W/ O2 SATS > 92%. PROVIDER AT BEDSIDE TO SEE PT & PT's , HE HAS UPDATED THEM ON POC. IT IS DISCUSSED W/ THIS RN THAT A PEG TUBE PLACEMENT WILL NOT BE POSSIBLE R/T POOR PROGNOSIS & LIKELY RISK TO CONTINUE ASPIRATING. WILL CONTINUE TO MONITOR & UPDATE NEEDED.
--- NOTE | 2018-05-07 12:37 | NUR ---
FAX RECEIVED FROM [facility] AND THEY DO NOT HAVE AN ADVANCED DIRECTIVE OR POLST ON FILE FOR NATA. HORTENCIA, AND JACKSON MCKINNEY UPDATED.
--- NOTE | 2018-05-07 13:44 | NUR ---
Pt.in bed resting shows a sign of some improvement encouraged pt. and prayed for him.
--- NOTE | 2018-05-07 15:33 | NUR ---
Extensive discussion facilitated with the patients , Nazanin Morales. I established therapeutic rapport, created an environment for decompression and emotional procesing, and provided respectful education on the principles of medical decision making within an ethical and moral framework. We spent a good amount of time focussing on the concept of extraordinary and disproportionate care, non-aggressive and hospice alternatives, and the art of knowing when its time to say goodbye. Nazanin showed clear signs of interest and receptivity, and made substantive contributions to the conversation. She expressed amenability to comfort measures only but would very much like input from Dr Eugene and / or Dr Sanchez prior to suspending heroic interventions or forgoing life sustaining services. She has a history and trust with both of them. I will attempt to follow up with Nazanin and Dr Eugene again tomorrow. Thank you for this consult. Josh Mendez
--- NOTE | 2018-05-07 17:39 | NUR ---
SHIFT SUMMARY: NO ACUTE CHANGES THIS SHIFT. PT IS MORE RESPONSIVE, ANSWERING QUESTIONS APPROPRIATELY & ATTEMPTING TO HOLD A CONVERSATION W/ THIS RN, ALTHOUGH COMMUNICATION IS STILL DIFFICULT AT TIMES R/T PT MUMBLING & BECOMING CONFUSED. HE IS PLEASANT & COOPERATIVE W/ CARE. REMAINS ON RA W/ O2 SATS > 92% NO HEART MONITOR. BT x4, ABD SOFT/NONTENDER. CHRONIC LLOYD REMAINS PATENT/DRAINING DARK YELLOW URINE. ALL ORAL MEDS HAVE BEEN D/C'd PT IS STRICT NPO FOR HIGH ASPIRATION RISK. ORAL CARE & SUCTIONING Q4H/PRN. ETHICS CONSULT COMPLETED TODAY & PLAN IS TO CONSULT PT's PCP, DR. TORRES, FOR INPUT PER FAMILY REQUEST. WILL CONTINUE TO MONITOR & REPORT OFF TO ONCOMING RN.
--- NOTE | 2018-05-08 00:15 | NUR ---
ASSUMING CARE RECEIVED PT REPORT FROM DAR, AND HORTENCIA HOWARD. PT IS MED NO TELE STATUS AT THIS TIME. PT IS ADMITTED DUE TO SEPSIS AND PNEUMONIA DUE TO ASPIRATION. PT SPEECH IS GARBLED AND VERY DIFFICULT TO UNDERSTAND. PT IS UNABLE TO FOLLOW ANY COMMANDS AND WILL PUSH AGAINST TURNS OR GRAB AT STAFF THROUGH CARES. PT IS AT BEDSIDE AND IS ABLE/WILLING TO ASSIST WITH SOME CARES. PT IS ON ROOM AIR AT THE TIME CARE ASSUMED. PT SPO2 IS IN THE MID 90'S PT IS NPO AT THIS TIME DUE TO RISK OF ASPIRATION. PT HAS CHRONIC LLOYD CATH IN PLACE, CURRENTLY PATENT AND DRAINING YELLOW URINE AT THIS TIME. PT HAS ATTENDS IN PLACE AT THIS TIME DUE TO INCONTINENCE OF STOOL. ASSUMED CARE OF PT AT THE TIME OF SHIFT REPORT. WILL CONTINUE TO MONITOR PT.
[2018-05-08 03:52] LABS: BASOPHILS ABSOLUTE AUTO 0.04 K/mm3 (0.00-0.23); BASOPHILS PERCENT AUTO 0 % (0-2); EOSINOPHILS ABSOLUTE AUTO 0.33 K/mm3 (0.00-0.68); EOSINOPHILS PERCENT AUTO 4 % (0-6); Hematocrit 43.5 % (37.0-53.0); IMMATURE GRAN ABSOLUTE AUTO 0.06 K/mm3 (0.00-0.10); IMMATURE GRAN PERCENT AUTO 1 % (0-1); LYMPHOCYTES ABSOLUTE AUTO 1.93 K/mm3 (0.84-5.20); LYMPHOCYTES PERCENT AUTO 21 % (21-46); MONOCYTES ABSOLUTE AUTO 0.77 K/mm3 (0.16-1.47); MONOCYTES PERCENT AUTO 8 % (4-13); Mean Corpuscular HGB 28.8 pg (26.0-34.0); Mean Corpuscular HGB Conc 32.2 g/dL (31.5-36.5); Mean Corpuscular Volume 90 fL (80-100); NEUTROPHILS ABSOLUTE AUTO 6.18 K/mm3 (1.96-9.15); NEUTROPHILS PERCENT AUTO 67 % (41-73); Platelet Count 314 K/mm3 (150-400); RDW Coefficient Variation 13.6 % (11.7-14.2); RDW Standard Deviation 44.1 fL (35.1-46.3); Red Blood Cell Count 4.86 M/mm3 (4.30-5.90); White Blood Cell Count 9.31 K/mm3 (4.00-11.30)
[2018-05-08 04:11] LABS: Alanine Aminotransfer (ALT/SGP 96 U/L (12-78); Albumin, Blood 2.4 g/dL (3.4-5.0); Albumin/Globulin Ratio 0.6 (0.8-1.8); Alk Phos 56 U/L (50-136); Anion Gap 7 mmol/L (6-16); Aspartate Aminotrans (AST/SGOT 62 U/L (12-37); Bilirubin, Total 0.8 mg/dL (0.1-1.0); Blood Urea Nitrogen 9 mg/dL (8-24); Bun/Creatinine Ratio 9.2 (12.0-20.0); CO2, Blood 27 mmol/L (21-32); Calcium, Blood 7.9 mg/dL (8.5-10.1); Chloride, Blood 108 mmol/L (98-108); Creatinine, Blood 0.98 mg/dL (0.60-1.20); Globulin, Blood 3.7 g/dL (2.2-4.0); Glomerular Filtration Rate >60 (60-); Glucose, Blood 94 mg/dL (70-99); Potassium, Blood 2.9 mmol/L (3.5-5.5); Sodium, Blood 142 mmol/L (136-145); Total Protein, Blood 6.1 g/dL (6.4-8.2)
--- NOTE | 2018-05-08 06:26 | NUR ---
SHIFT SUMMARY NOTE PT HAS RESTED THROUGH MOST OF THE NIGHT. PT CONTINUES TO HAVE HIGHLY GARBLED SPEECH. PT REMAINS AT BEDSIDE. PT CONTINUES TO PUSH AGAINST TURNS AND CARES. PT HAS LLOYD CATHETER IN PLACE. PT VITALS HAVE REMAINED STABLE THROUGHOUT THE NIGHT. PT LLOYD REMAINS PATENT AND DRAINING YELLOW URINE AT THIS TIME. PT CONTINUES TO HAVE NS RUNNING AT 125ML/HR. NO ACUTE CHANGES OVERNIGHT. WILL REPORT OFF TO ONCOMING DAY SHIFT NURSE.
--- NOTE | 2018-05-08 07:30 | NUR ---
ASSUMED CARE PT. AWAKENS TO VERBAL STIMULI. PT. SLOW TO RESPOND AND SPEECH DIFICULT TO UNDERSTAND. PT. REMAINS AT BEDSIDE. PT. DENIES PAIN THIS AM. VSS THIS AM. DR. SOSA IN TO ASSESS PT THIS AM. CURRENTLY ON RA. TOM.
--- NOTE | 2018-05-08 11:17 | NUR ---
Pt. lying in bed resting, he is fast asleep. No need to wake him up,but offered prayer for him.
--- NOTE | 2018-05-08 11:46 | NUR ---
Case update: Phone conversation facilitated with Dr Reggie Eugene about Rosalina interest in discussing with him the question of providing artificial nutrition and hydration to the patient. While reviewing the clinical details and concerns with him Nazanin showed up in his lobby for a visit. Subsequently Dr Eugene intimated his support for a PEG. I relayed this information to Palliative Care, and to Dr Vega who agreed to contact Reggie for a longer discussion.
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
--- NOTE | 2018-05-08 13:18 | NUR ---
DR. GIBBONS CALLED REGARDING PEG TUBE PLACEMENT AND WAS TALKED TO AND UPDATED BY PT . CONNECTED DR. SOSA AND DR. GIBBONS TO DISCUSS PLAN FOR PT. PALLIATIVE CARE AT BEDSIDE.
--- NOTE | 2018-05-08 13:59 | NUR ---
Torrey was alert, comfortable and pleasant. No indications of pain or stress observed. He responded favorably to a greeting and social attention. His Nazanin was present and supportive. I provided compassionate listening, and words of reassurance, and encouragement. Nazanin is still insistent that we attempt alternate forms of nutrition management before discontinuing curative and sustaining therapies. The degree to which the patient will allow, or tolerate a Dobhoff or NGT is unknown.
--- NOTE | 2018-05-08 14:31 | NUR ---
DOBHOFF ATTEMPT PROCEDURE EXPLAINED TO AND TO PATIENT. PT SHOOK HEAD YES FOR RN TO ATTEMPT DOBHOFF ADDITIONAL HORTENCIA PHILIPPE AT BEDSIDE ALONG WITH PT AND JACKSON MCIKNNEY FROM ETHICS COMMITTEE AT BEDSIDE WELL. UPON FIRST ATTEMPT PT SHAKING HEAD AND STATING "NO" PULLING AT RN ARMS STRONGLY AND PULLED DOBHOFF OUT. AFTER TALKING WITH PT AND SECOND ATTEMPT WITH SAME RESPONSE FROM PT; FIGHT AT STAFF TO PULL AT RN ARMS AND STATES "NO". EXPLAINED TO PT AND THAT IF HE SAYS NO THEN I CAN NOT FORCE HIM TO HAVE THE TUBE. PT. VOICED UNDERSTANDING THAT THE TUBE WOULD BE USED TO PROVIDE NUTRITION AND MEDICATIONS. PT. SHAKES HEAD YES TO UNDERSTANDING AND WHEN ASKED IF RN COULD TRY TO PLACE TUBE AGAIN AND PT STATES "NO". PT TEARFUL AT BEDSIDE AND INSISITING WE TRY TO PLACE TO THE TUBE AGAIN; EXPLAINED TO PT THAT IF PT IS REFUSING THEN I CAN NOT FORCE HIM TO HAVE THE TUBE PLACE. HORTENCIA PHILIPPE AND JACKSON MCKINNEY WITNESS FOR VERBAL DECLINE OF DOBHOFF PLACEMENT AFTER EXPLANATION. DR. SOSA NOTIFIED.
--- NOTE | 2018-05-08 14:54 | NUR ---
RN attempted Dobhoff placement per request of principals spouse. Patient consents to intervention but then strongly and adamantly resists the procedure. This occurs during the second attempt as well. Its gently explained to the that proceeding forward with the intervention in the face of the husbands protestations would be medically and ethically inappropriate. The RN with confirmation from the patient suspended the effort and offered comfort and reassurance. I spent additional time with the and the patient extending residential counselor, warmth and directional encouragement. I will follow up again before my shifts end.
--- NOTE | 2018-05-08 17:53 | NUR ---
SHIFT SUMMARY PT. CONTINUES RESTING COMFORTABLY IN BED. AT BEDSIDE T/O DAY. ATTEMPTED DOBHOFF TODAY PER DR. GIBBONS AND DR. SOSA DISCUSSION HOWEVER PT DID NOT TOLERATE SEE NOTE. PT REMAINS NPO AT THIS TIME. DR. SOSA TO UPDATE DR. GIBBONS TOMORROW FOR NEW PLAN FOR CARE. PT. VSS T/O SHIFT. REPOSITIONED FREQUENTLY. REPORT TO ONCOMING RN
--- NOTE | 2018-05-08 22:17 | NUR ---
ASSUMING CARE RECEIVED PT REPORT FROM HORTENCIA GUPTA. PT CONTINUES TO HAVE AT BEDSIDE. PT WILL OCCASIONALLY SPEAK WORDS BUT SPEECH IS GENERALLY GARBLED AND DIFFICULT TO UNDERSTAND. PT APPEARS TO REPEAT WHAT IS BEING SAID AROUND HIM. PT CONTINUES TO BE DIFFICULT TO TURN PT WILL PUSH AGAINST TURNS AND IS VERY RIDGID AT TIMES. PT HAS CHRONIC LLOYD IN PLACE. LLOYD IS PATIENT AND DRAINING CLEAR YELLOW URINE AT THIS TIME. PT HAS ATTENDS IN PLACE FOR INCONTINENCE OF STOOL. PT IS RECEIVING NS AT 125ML/HR. PT VITALS ARE STABLE AT THIS TIME. PT IS MED W/O TELE AT THIS TIME. ASSUMING CARE OF PT AT THE TIME OF SHIFT REPORT. WILL CONTINUE TO MONITOR PT.
--- NOTE | 2018-05-09 06:25 | NUR ---
SHIFT SUMMARY NOTE PT REMIANS CONFUSED WITH HIGHLY GARBLED SPEECH. PT CONTINUES TO RESIST TURNS AND CARES THROUGH THE NIGHT. PT CONTINUES TO BE AT BEDSIDE. PT HAS REMAINED NPO THROUGH THE NIGHT. PT CBG HAS BEEN IN THE 70'S THROUGH THE NIGHT. PT CONTINUES TO RECEIVE NS AT 125ML/HR. PT HAS HAD NO ACUTE EVENTS OVERNIGHT. WILL REPORT OFF TO ONCOMING DAY SHIFT NURSE.
--- NOTE | 2018-05-09 07:10 | NUR ---
PT PLEASANT CONFUSED. ANS SOME QUEST CONCRETE. DENIES PAIN, N/T. H/R REG, NO MURMER NOTED. NO TELE. LUNGS CLEAR UPPER, DIM BASES. RESP EASY, UNLABORED. ON R/A. BT X4 LAST BM NOT KNOWN BY PT. ABD SOFT NONTENDER, MODERATE SIZE. VOIDS PER LLOYD CATH. DRAINING CLEAR YELLOW FLUID. PT BEDBOUND BASELINE PER REPORT. BED IN LOW POSITION, CALL LITE IN REACH.
--- NOTE | 2018-05-09 10:16 | NUR ---
SPOUSE NOT IN ROOM SINCE SHIFT CHANGE. STILL NOT IN ROOM
--- NOTE | 2018-05-09 13:14 | NUR ---
Met pt lying in bed and the spouse in the room , pt is weak and is not doing , spoke with the and prvided both spiritual and emotional support and offered prayers.
--- NOTE | 2018-05-09 15:01 | NUR ---
Austin was sleeping and appeared well supported and comfortable. Nazanin was present showing attention and concern. I engaged her in conversation, we again discussed the non-beneficial nature of proceeding with aggressive therapy including mechanically administered nutrition and hydration, and I reassured her that forgoing those services is the most medically and ethically appropriate course. His daughter also called and expressed the same. Nazanin is gradually and bravely coming to terms with this plan. I also provided pastoral support, comfort and encouragement.
--- NOTE | 2018-05-09 18:29 | NUR ---
PT RESONDS TO SOME QUESTIONS. SOMETIMES APPROP, SOMETIMES NOT. AT BEDSIDE THIS AFT. HAD SEVERAL DISCUSSIONS ABOUT CODE STATUS. SHE BELIEVES HE WOULD NOT WANT TO BE BROUGHT BACK FROM IF HIS HEART STOPPED. SHE BELIEVES HE HAD HIS LAST RIGHTS AND IS SAFE TO GO TO [facility]. SHE STATES SHE WANTS TO TALK TO FAMILY AND CONSIDER AT LEAST CHANGING TO DNR/DNI. AGREED WITH HER MAY BE THE BETTER DECISION. EXPLAINED OUR TREATMENT DOES NOT CHANGE UNTIL HIS HEART STOPPED OR HIS BREATHING STOPPED. SHE STATES SHE UNDERSTANDS. SHE TO TALK TO FAMILY FURTHER. NEXT WAS DISCUSSION ABOUT COMFORT CARE. THIS WOULD ALLOW HIM TO EAT AND DRINK, BUT UNDERSTANDING WE WILL ACCEPT HIS LIKELY ASPIRATION AND LIKELY PNEUMONIA. WE WOULD NOT TREAT. SHE STATES UNDERSTANDS. WILL CONSIDER. PASSED INFO TO [facility]. [place] TO SEE AMARILYS. BED IN LOW POSITION, CALL LETICIA HORTA,
--- NOTE | 2018-05-09 19:33 | NUR ---
Emotionally therapeutic conversation with , Nazanin. She is grieving for her and is hurting. Provided listening for Nazanin. She is expressing her devotion to her , disappointment in medical care, struggle with some of the choices she may make. Spoke about NG tube placement attempt. Discussed trying NG tube one last time. Discussed that it is a painful procedure for all patients, but once in place is more irritating than painful. She is unsure that she will request another attempt. She did state that pt was baptized today by Father Adama and Father Remy. She was very grateful for this. She is tired of talking about code status, she states. I did not ask her about this during our visit, but she mentioned that she was tired of hearing it. Encouraged her to rest. Will follow up with her tomorrow.
--- NOTE | 2018-05-09 20:50 | NUR ---
PATIENT UPDATE PATIENT CURRENTLY RESTING COMFORTABLY, HE DENIES ANY NEEDS AT THIS TIME. PT AT BEDSIDE. PT WILL BE TRANSFERED TO SURGICAL ROOM 209. ROOM IS BEING CLEANED AND REPORT HAS NOT BEEN CALLED YET. PT WILL CONTINUE TO BE MONITORED UNITL HANDOFF TO SURGICAL NURSE.
--- NOTE | 2018-05-09 23:35 | NUR ---
TRANSFER PT TRANSFERRED TO SURGICAL FLOOR FROM ICU. PT IS AWAKE, ALERT AND RESPONSIVE, ANSWERING QUESTIONS. PT IS COOPERATIVE WITH CARE AT THIS TIME. HE IS ABLE TO MOVE ALL EXTREMITIES. LUNGS ARE CLEAR/DIM IN THE BASES. ON ROOM AIR. NS INFUSING @ 75 ML/HR. ATTENDS CHANGED, SKIN CARE PROVIDED. IS AT THE BEDSIDE. WAS GIVEN EMOTIONAL SUPPORT, SHE WAS VERY UPSET AND WAS UNDER THE IMPRESSION THAT HER WAS BEING TRANSFERRED TO THE " UNIT", SHE WAS EDUCATED ON THE REASON FOR TRANSFER, SHE EXPRESSED HER FRUSTRATIONS WITH THE PHYSICIANS DECISIONS AND THE EVENTS THAT HAD HAPPENED THROUGH THE DAY. I WAS ABLE TO CALM HER DOWN, OFFERED COMFORT AND REASSURANCE. PT'S WAS GIVEN WATER AND BEDDING, REFUSED SNACKS, SHE WILL BE STAYING THE NIGHT. WCTM. CALL LIGHT IS IN REACH.
[2018-05-10 04:40] LABS: Anion Gap 15 mmol/L (6-16); Blood Urea Nitrogen 6 mg/dL (8-24); Bun/Creatinine Ratio 7.9 (12.0-20.0); CO2, Blood 19 mmol/L (21-32); Calcium, Blood 7.8 mg/dL (8.5-10.1); Chloride, Blood 104 mmol/L (98-108); Creatinine, Blood 0.76 mg/dL (0.60-1.20); Glomerular Filtration Rate >60 (60-); Glucose, Blood 67 mg/dL (70-99); Potassium, Blood 3.2 mmol/L (3.5-5.5); Sodium, Blood 138 mmol/L (136-145)
--- NOTE | 2018-05-10 06:22 | NUR ---
SUMMARY NO CHANGES SINCE ADMISSION TO THE FLOOR. REMAINS AT BEDSIDE. BED ALARM IS ON FOR SAFETY. CALL LIGHT IN REACH, WCTM AND REPORT TO DAY RN.
--- NOTE | 2018-05-10 10:45 | NUR ---
PATIENTS SPOUSE AT BEDSIDE, ANGRY STATES "WHY ARE YOU TRYING TO MURDER MY - DR SOSA HAS TALKED TO ALL THE OTHER DOCTORS AND NOW NO ONE WILL HELP MY " PROVIDED PATIENTS WITH PATIENT ADVOCATE NUMBER, DISCUSSED WITH PATINTS MEDICAL REASON FOR WHICH HER IS NPO. DISCUSSED WITH PATIENTS THAT IF SHE IS UNHAPPY WITH THE CARE THAT IS BEING PROVIDED THAT SHE HAS THE RIGHT TO SEEK CARE AT ANOTHER FACILITY. ASKED SPOSE IF SHE WOULD LIKE TO SPEAK WITH PASTORAL CARE AND SHE DECLINES. REMAINS ANGRY AND KEEPS REPEATING SAME CONVERSATION.
--- NOTE | 2018-05-10 11:06 | NUR ---
Pt visit this AM. Pt is resting in bed and appears comfortable. Pt's Nazanin at bedside. Engaged in therapeutic conversation and listened as Nazanin expressed frustrations about Pt's condition and care he has recieved currently and in the passed. Educated Nazanin on disease process and listened as she expressed further concerns. Intructed Nazanin to contact palliative care with any other questions or concerns.
--- NOTE | 2018-05-10 16:40 | NUR ---
DR QUIROZ SPOKE AT LENGTH WITH PATIENT AND HIS REGARDING HIS MEDICAL TREATMENT PLAN. THIS RN CONTINUED DISCUSSION WITH PATIENT AND HIS AFTER DR DANIEL VISIT. ASKED PATIENTS WHAT SHE WOULD LIKE THE MEDICAL TEAM TO DO IF DON WAS TO STOP BREATHING OR IF HIS HEART STOPPED- PATIENT TELLS ME JUST LET HIM GO AND TELLS ME TO ASK DON (PATIENT) WHAT HE WANTS. SPOKE WITH DON AND ASKED HIM IF HE WERE TO STOP BREATHING OR IF HIS HEART WERE TO STOP WOULD HE LIKE TO BE PLACED ON MACHINE OR WOULD LIKE US TO LET HIM GO AND DON STATES "JUST LET ME GO" SPOKE WITH DR QUIROZ AND DNR ORDER PLACED. DNR BRAcelet placed on patient
--- NOTE | 2018-05-10 17:53 | NUR ---
SUMMARY PATIENT REPOSITIONED, STATES HE FEELS "GOOD" MEPILEX IN PLACE TO COCCYX. PATIENTS OUT OF ROOM AT THIS TIME WENT TO CHECK ON HER HOUSE BASEMENT WAS FLOODED
--- NOTE | 2018-05-10 19:23 | NUR ---
SUMMARY PATIENTS RETURNED TO ROOM AND TELLS ME " I DONT KNOW IF I MADE THE RIGHT DECISION, DON WOULD WANT TO LIVE" SPOKE AT LENGTH WITH PATIENTS REGARDING DNR AND AT THIS TIME WANTS DNR BAND LEFT IN PLACE. CONTACTED Jovi GUTHRIE HOSPITALIST REGARDING CBG OF 55 AND NEW ORDERS RECEIVED
--- NOTE | 2018-05-11 04:54 | NUR ---
SUMMARY: NO CHANGE TONIGHT. VSS, PT ORIENTED TO SLEF, FAMILY AND FOLLOWS DIRECTIONS. RE ORIENTED PRN. PT TURNED Q2 PRN. 2 BM'S TONIGHT. SKIN CARE COMPLETED, MEPILEX TO COCCYX. CBG'S WNL TONIGHT, D5 1/2 NS INFUSING. NO INSULIN COVERAGE INDICATED. PT DENIES PAIN OR SOB. LUNGS CLEAR AND DIM. NO ACUTE CONCERNS AT THIS TIME. PT AT BEDSIDE.
[2018-05-11 06:13] LABS: Anion Gap 14 mmol/L (6-16); Blood Urea Nitrogen 6 mg/dL (8-24); Bun/Creatinine Ratio 7.3 (12.0-20.0); CO2, Blood 22 mmol/L (21-32); Chloride, Blood 102 mmol/L (98-108); Creatinine, Blood 0.82 mg/dL (0.60-1.20); Glomerular Filtration Rate >60 (60-); Glucose, Blood 109 mg/dL (70-99); Potassium, Blood 2.7 mmol/L (3.5-5.5); Sodium, Blood 138 mmol/L (136-145)
--- NOTE | 2018-05-11 13:23 | NUR ---
Spoke with Dr Ratliff before visit and she requests palliative care to have discussion for goals of care with Pt and his including the possibility of PEG Tube placement. Pt visit this afternoon. Pt resting in bed and appears comfortable. He is A&O x1. Pt intermittently attempts to have a conversation but is non sensical and difficult to understand. For much of the visit Pt colses his eyes and appears to be resting. Engaged in therapeutic conversation with Pt's Nazanin. Listened as she expressed frustrations and offered emotional support. Discussed the possibility of having a PEG tube placed and Nazanin states that Pt may be passed this point as an option but will discuss it further with the Pt's sisters when they arrive from [place] tomorrow. She reports talking with Pt's daughter and discussion was made about quality of life vs quantity of life. Educated Nazanin about end of life care options including hospice. Encouraged Nazanin to have discussion with family about all of Pt's options before making a decision. Instructed Nazanin to contact palliative care with any other questions or concerns and another visit will be made tomorrow. Left contact information with Nazanin. Will reamain available.
--- NOTE | 2018-05-11 16:46 | NUR ---
ROUNDING: IN ROOM TO SEE PATIENT AND FAMILY. PALLIATIVE CARE IN TO DISCUSS POSSIBILITY OF FEEDING TUBE PLACEMENT. PT'S SISTERS WILL BE HERE TOMORROW TO HELP MAKE DECISIONS IN PT'S CARE. CHANGE TO FLUIDS. NYSTATIN ORDERED FOR PENIS AND SCROTAL IRRITATION.
--- NOTE | 2018-05-11 18:33 | NUR ---
pt has been stable this shift. cont npo, iv fluids changed. discussion between family, md and palliative care about possible feeding tube placement. turning q2hr. pt had bed bath this afternoon. started on nystatin to groin. pen[place] draining well, cath care done. preventative dressing to coccyx, no breakdown. pt is confused at baseline, at bedside. bed alarm on for safety. no c/o pain. pas to ble.
[2018-05-12 05:17] LABS: BASOPHILS ABSOLUTE AUTO 0.06 K/mm3 (0.00-0.23); BASOPHILS PERCENT AUTO 1 % (0-2); EOSINOPHILS ABSOLUTE AUTO 0.42 K/mm3 (0.00-0.68); EOSINOPHILS PERCENT AUTO 4 % (0-6); Hematocrit 43.1 % (37.0-53.0); Hemoglobin 14.4 g/dL (13.5-17.5); IMMATURE GRAN ABSOLUTE AUTO 0.06 K/mm3 (0.00-0.10); IMMATURE GRAN PERCENT AUTO 1 % (0-1); LYMPHOCYTES ABSOLUTE AUTO 1.56 K/mm3 (0.84-5.20); LYMPHOCYTES PERCENT AUTO 16 % (21-46); MONOCYTES ABSOLUTE AUTO 1.06 K/mm3 (0.16-1.47); MONOCYTES PERCENT AUTO 11 % (4-13); Mean Corpuscular HGB 28.5 pg (26.0-34.0); Mean Corpuscular HGB Conc 33.4 g/dL (31.5-36.5); Mean Platelet Volume 10.6 fL (9.1-12.4); NEUTROPHILS ABSOLUTE AUTO 6.41 K/mm3 (1.96-9.15); NEUTROPHILS PERCENT AUTO 67 % (41-73); Platelet Count 279 K/mm3 (150-400); RDW Coefficient Variation 14.2 % (11.7-14.2); RDW Standard Deviation 42.7 fL (35.1-46.3); Red Blood Cell Count 5.05 M/mm3 (4.30-5.90); White Blood Cell Count 9.57 K/mm3 (4.00-11.30)
[2018-05-12 05:25] LABS: Mean Corpuscular Volume 85 fL (80-100)
[2018-05-12 05:38] LABS: Magnesium, Blood 1.6 mg/dL (1.6-2.4)
[2018-05-12 05:39] LABS: Albumin, Blood 2.3 g/dL (3.4-5.0); Anion Gap 10 mmol/L (6-16); Blood Urea Nitrogen 3 mg/dL (8-24); Bun/Creatinine Ratio 3.8 (12.0-20.0); CO2, Blood 26 mmol/L (21-32); Calcium, Blood 7.9 mg/dL (8.5-10.1); Chloride, Blood 102 mmol/L (98-108); Creatinine, Blood 0.79 mg/dL (0.60-1.20); Glomerular Filtration Rate >60 (60-); Glucose, Blood 138 mg/dL (70-99); Phosphorus, Blood 1.5 mg/dL (2.5-4.9); Potassium, Blood 2.6 mmol/L (3.5-5.5); Sodium, Blood 138 mmol/L (136-145)
--- NOTE | 2018-05-12 07:37 | NUR ---
SHIFT SUMMARY PT A&O X2 (SELF, AND ) T/O SHIFT; OCC FOLLOWS SIMPLE DIRECTIONS. PT NPO; ORAL CARE PT ALLOWED. PT REPOSITIONED T/O SHIFT. BILAT HEELS FLOATED. LS DIM; RA; PT DENIES SOB. ABD SOFT. IV GTT PER EMAR. NO INSULIN COVERAGE INDICATED T/O SHIFT. GABINO PATENT. CALL LIGHT IN REACH; PT'S AT BEDSIDE T/O SHIFT. BED ALARM AND SIDE RAILS X3. REPORT GIVEN TO DAY SHIFT RN.
--- NOTE | 2018-05-12 10:57 | NUR ---
Austin was sleeping and appeared comfortable and well supported. Nazanin was at the bedside providing attention and showing appropriate concern. I engaged her in conversation, and created an opportunity for positive life review and reminiscence. Nazanin engaged in story telling and waxed nostalgically about their family history, quality of relationship, and shared interests. I offered encouragement and reassurance that she's done an admirable job caring and advocating for Austin. She informed me that his sisters are arriving this afteroon to visit Austin, support her, and contribute to the discussion on Tube Feeding. The collective opinion appears to continue to be though that given Austins various co-morbidities artificial nutrition and hydration would be of limited beneficialty or possibly even clinically problematic in nature. I will continue to follow.
--- NOTE | 2018-05-12 11:20 | NUR ---
DR. PAGE NOTIFIED OF LOW POTASSIUM AND PHOS. AWAITING ORDERS AT THIS TIME. WILL CONTINUE TO MONITOR.
--- NOTE | 2018-05-12 11:55 | NUR ---
Met in bed resting and the spouse in the room pt. is in comfortcare talked to the and encouraged her and prayed forthe pt.
--- NOTE | 2018-05-12 17:42 | NUR ---
UNFORMED STOOL PT IS PASSING UNFORMED MUCUSY STOOL. DR. PAGE NOTIFIED. WILL CONTINUE TO MONITOR. NO NEW ORDERS AT THIS TIME.
--- NOTE | 2018-05-12 18:05 | NUR ---
SHIFT SUMMARY PT HAS RESTED IN BED WITH ASSISTANCE REPOSITIONING. PT HAS BEEN INCONTINENT OF STOOL THIS SHIFT; ATTENDS ARE IN PLACED. PT'S HAS BEEN AT THE BEDSIDE; HIS SISTERS HAVE NOT YET ARRIVED TO DISCUSS PT'S PLAN OF CARE. PT IS A MAX ASSIST FOR REPOSITIONING. VSS. WILL CONTINUE TO MONITOR UNTIL REPORT TO ONCOMING RN.
[2018-05-13 05:37] LABS: Magnesium, Blood 1.6 mg/dL (1.6-2.4)
[2018-05-13 05:38] LABS: Albumin, Blood 2.3 g/dL (3.4-5.0); Anion Gap 10 mmol/L (6-16); Blood Urea Nitrogen 3 mg/dL (8-24); Bun/Creatinine Ratio 3.6 (12.0-20.0); CO2, Blood 27 mmol/L (21-32); Calcium, Blood 7.9 mg/dL (8.5-10.1); Chloride, Blood 102 mmol/L (98-108); Creatinine, Blood 0.83 mg/dL (0.60-1.20); Glomerular Filtration Rate >60 (60-); Glucose, Blood 129 mg/dL (70-99); Phosphorus, Blood 1.9 mg/dL (2.5-4.9); Potassium, Blood 2.6 mmol/L (3.5-5.5); Sodium, Blood 139 mmol/L (136-145)
--- NOTE | 2018-05-13 07:06 | NUR ---
SUMMARY: NO ACUTE CHANGES THIS SHIFT, VSS, AFEBRILE. MAINTAINS NPO STATUS WITH FREQUENT ORAL CARE AND REPOSITIONING FOR COMFORT. REMAINS @ BEDSIDE AND IS ATTENTIVE TO PT NEED. ANTICIPATE SURGEON TO SPEAK WITH ABOUT PLAN OF CARE AND POSSIBLY PT'S SISTERS BE PRESENT WELL.
--- NOTE | 2018-05-13 10:05 | NUR ---
PATIENT'S GAVE ASSISTANT FOOD SERVICE MANAGER PERMISSION TO PERFORM CARE ON 05/14/18.
--- NOTE | 2018-05-13 11:01 | NUR ---
NUTRITION STATUS DISCUSSED WITH PT'S SUPPLEMENTAL NUTRITION. SHE IS VERY CONCERNED ABOUT HER 'S NUTRITIONAL STATUS AND WOULD LIKE HIM TO START SUPPLEMENTAL NUTRITION. SHE HAD BEEN WAITING FOR PT'S SISTERS TO ARRIVE AND HELP MAKE DECISIONS; SINCE THEY HAVE NOT YET ARRIVED SHE REPORTED SHE WOULD LIKE TO MAKE DECISIONS WITHOUT THEM AT THIS TIME. MESSAGE LEFT WITH DR. PAGE AT THIS TIME REGARDING CONCERNS FOR SUPPLEMENTAL NUTRITION.
--- NOTE | 2018-05-13 11:27 | NUR ---
Austin was sleeping and appeared comfortable and well supported. No indications of pain, or stress. He did not stir to acoustic interference. Nazanin was at the bedside being attentive and watchful. She reports that Austin's two sisters arrived safely in [place] Saturday. She was expecting them last night but continues to wait eagerly and patiently for them to stop in and see him. I provided social encouragement, compassionate listening, and pastoral presence for comfort and reassuarance. Nazanin thanked me for the time and attention.
--- NOTE | 2018-05-13 12:02 | NUR ---
Pt. is lying in bed and the in the room encouraged pt and offered some prayers for the pt.
--- NOTE | 2018-05-13 12:03 | NUR ---
pt/ gave permission on 05/13/18 at 1130 to care for pt on 05/14/18 from [phone]
--- NOTE | 2018-05-13 15:09 | NUR ---
ATTEMPTED TO CALL PT'S X2 TO ARRANGE MEETING WITH PT'S , SISTERS, DR. PAGE AND PALLIATIVE CARE. UNABLE TO REACH PT'S AT THIS TIME. DR. PAGE NOTIFIED.
--- NOTE | 2018-05-13 17:03 | NUR ---
PALLIATIVE CARE DISCUSSED WITH PALLIATIVE CARE THAT FAMILY HAVE ALL AGREED THEY WOULD LIKE A PEG TUBE PLACED. MESSAGE LEFT WITH DR. PAGE REGARDING FAMILY'S DECISION. CLINIMIX AND LIPIDS STARTED.
--- NOTE | 2018-05-13 18:31 | NUR ---
SHIFT SUMMARY PT HAS BEEN CONFUSED T/O THE DAY, PT DOES NOT FOLLOW DIRECTIONS WELL. DR. PAGE WAS NOTIFIED THAT PT APPEARS MORE CONFUSED. PT IS RESISTANT TO ORAL CARE AND CLOSES HIS MOUTH WHEN STAFF ATTEMPTS TO MOISTEN HIS TOUNGE OR BRUSH TEETH. PT IS A MAX ASSIST TO REPOSITION AND IS RESISTANT TO REPOSITIONING. FAMILY HAS BEEN AT THE BEDSIDE FOR MUCH OF THE DAY. PT'S AND SISTERS HAVE DECIDED THEY WOULD LIKE TO HAVE A PEG TUBE PLACED FOR NUTRITION. CONSULT WAS CALLED TO DR. QUINTANILLA. VSS. WILL MONITOR UNTIL REPORT TO ONCOMING RN.
--- NOTE | 2018-05-14 04:11 | NUR ---
SHIFT SUMMARY PT REMAINS ON FLOOR FOR UROSEPSIS, ASPIRATION PNEUMONIA. ABX PER EMAR. HX OF DEMENTIA, PT HAS DIFFICULTY FOLLOWING DIRECTIONS AND MAKING NEEDS KNOWN. CLINIMIX AND LIPIDS RAN PER ORDERS OVERNIGHT. POTENTIAL FOR PEG TUBE PLACEMENT TODAY. CBGS STABLE, NO COVERAGE REQUIRED AT [place]. LLOYD PATENT, DRAINING CLEAR YELLOW URINE. JULIO CESAR QUINTANILLA AND FELIPE CONSULTED FOR PEG TUBE. PT'S STAYED THE NIGHT. PT HAS LIMITED MOVEMENT IN THE UPPER EXTREMITIES AND WAS UNABLE TO FOLLOW DIRECTIONS TO ATTEMPT TO WIGGLE HIS TOES. PT REQUIRED HYDRALAZINE AT HS FOR HTN, EFFECTIVE TO TX. WILL CTM UNTIL PASS TO NEXT SHIFT.
[2018-05-14 06:21] LABS: BASOPHILS ABSOLUTE AUTO 0.06 K/mm3 (0.00-0.23); BASOPHILS PERCENT AUTO 1 % (0-2); EOSINOPHILS ABSOLUTE AUTO 0.24 K/mm3 (0.00-0.68); EOSINOPHILS PERCENT AUTO 2 % (0-6); Hematocrit 46.6 % (37.0-53.0); Hemoglobin 15.7 g/dL (13.5-17.5); IMMATURE GRAN ABSOLUTE AUTO 0.07 K/mm3 (0.00-0.10); IMMATURE GRAN PERCENT AUTO 1 % (0-1); LYMPHOCYTES PERCENT AUTO 17 % (21-46); MONOCYTES ABSOLUTE AUTO 1.31 K/mm3 (0.16-1.47); MONOCYTES PERCENT AUTO 13 % (4-13); Mean Corpuscular HGB 28.9 pg (26.0-34.0); Mean Corpuscular HGB Conc 33.7 g/dL (31.5-36.5); Mean Corpuscular Volume 86 fL (80-100); Mean Platelet Volume 10.6 fL (9.1-12.4); NEUTROPHILS ABSOLUTE AUTO 6.45 K/mm3 (1.96-9.15); NEUTROPHILS PERCENT AUTO 66 % (41-73); Platelet Count 287 K/mm3 (150-400); RDW Coefficient Variation 14.6 % (11.7-14.2); Red Blood Cell Count 5.43 M/mm3 (4.30-5.90); White Blood Cell Count 9.83 K/mm3 (4.00-11.30)
[2018-05-14 06:36] LABS: Albumin, Blood 2.4 g/dL (3.4-5.0); Anion Gap 9 mmol/L (6-16); Blood Urea Nitrogen 13 mg/dL (8-24); Bun/Creatinine Ratio 18.3 (12.0-20.0); CO2, Blood 27 mmol/L (21-32); Calcium, Blood 8.2 mg/dL (8.5-10.1); Chloride, Blood 101 mmol/L (98-108); Creatinine, Blood 0.71 mg/dL (0.60-1.20); Glomerular Filtration Rate >60 (60-); Glucose, Blood 138 mg/dL (70-99); Magnesium, Blood 1.9 mg/dL (1.6-2.4); Potassium, Blood 3.1 mmol/L (3.5-5.5); Sodium, Blood 137 mmol/L (136-145)
[2018-05-14 06:40] LABS: International Normalized Ratio 1.45; Prothrombin Time Results 14.9 Sec (9.7-11.5)
--- NOTE | 2018-05-14 09:59 | NUR ---
MEPILEX CHANGED BILATERALLY ON HEELS. NO EVIDENCE OF REDNESS OR SKIN BREAKDOWN.
--- NOTE | 2018-05-14 11:37 | NUR ---
0800 PATIENTS PATIENTS AT BEDSIDE AND TELLS ME SHE KNOWS HER WILL BUT WANTS PEG TUBE PLACED STATES DOES NOT WANT HIM "TO HUNGRY"
--- NOTE | 2018-05-14 11:57 | NUR ---
patients washing his face with washcloth and patient said that feels good, awake and alert at this time
--- NOTE | 2018-05-14 12:07 | NUR ---
to or per raisa
--- NOTE | 2018-05-14 12:10 | NUR ---
FROM SURGICAL FLOOR TO [facility]. VSS ADMISSION TO UNIT STARTED
--- NOTE | 2018-05-14 13:17 | NUR ---
05/14/18 1317 Farshad Berman Bite Block PlacedPatient to ENDO 1History, Chart, Medications and Allergies reviewed before start of procedure.MONITOR INTACT WITH CONTINUOUS PULSE OXIMETRY AND INTERMITTENT BP.O2 VIA N/C INTACT THROUGHOUT SEDATION/PROCEDURE.See Anesthesia record
--- NOTE | 2018-05-14 13:52 | NUR ---
Met pt.n bed prepaering to go for surgery, encouraged pt. offered prayers and spiritual suppport.
--- NOTE | 2018-05-14 14:16 | NUR ---
post op returned to room. peg tube in place to abdomen. dressing clean and dry. abd binder in place to protect peg tube from being displaced. patient opens eyes to verbal stimuli, sleeps when undisturbed
--- NOTE | 2018-05-14 17:17 | NUR ---
1500 emesis emesis of eugene liquid while patient sitting upright in bed. oral suction done, patient with weak cough. patients at bedside. bp77/49. contacted dr turner and orders received
--- NOTE | 2018-05-14 17:22 | NUR ---
1518 patient with emesis eugene liquid, visibly diaphoretic , does not respond to verbal stimuli. rapid response initiated. wali hanna at bedside and dr santiago arrrived at bedside and discussing patients status with patients . father Adama arrived at bedside and providing support to patients
--- NOTE | 2018-05-14 17:25 | NUR ---
patient remains in upright position has occasional weak cough and appears to occassionally hiccup. Josh Mendez has been with patient since rapid response initiated and excused himself from room at this time. patient with short verbal responses at times when talks to him. patient remains diaphoretic. appears relaxed, resp unlabored at this time
--- NOTE | 2018-05-14 17:28 | NUR ---
Austin was in post-surgical distress with vomitting, possible aspiration, and low blood pressure. I provided his Nazanin with therapeutic attention, supportive listening, and reassurance. The entire medical team comforted, encouraged and consoled her. Per Rosalina request I contacted various family members with an update as to [place] negatively developing clinical picture. I also provided soft acoustic guitar music at the bedside and adible prayer for alleviation of stress, and non-phamacuetical benefit. Nazanin expressed appreciation and enjoyment.
--- NOTE | 2018-05-14 18:23 | NUR ---
SUMMARY PATIENT LYING WITH EYES CLOSED, UNLABORED RESPIRATIONS. PATIENT AWAKENS WHEN TALKS TO HIM AND ANSWERS WITH 1-2 WORD RESPONSES. PATIENT APPEARS RELAXED.
--- NOTE | 2018-05-15 06:22 | NUR ---
CALL MADE TO DR. ESPINOZA TO [facility] DRAW THIS AM.
--- NOTE | 2018-05-15 06:23 | NUR ---
SUMMARY: SEE PREVIOUS DOWN TIME WRITTEN NOTES IN PT CHART. PT IS ON COMFORT CARE. PT HAS VOMITED X3 THIS SHIFT, WHILE SITTING UP RIGHT. PT MOUTH SUCTIONED AFTER EACH EMESIS, WEAK COUGH. HELPED TO CLEAN PT FACE WITH WASH CLOTH AND CHANGE GOWN. PT HAS REMAINED UP RIGHT THROUGH OUT THE NIGHT. FIRST TWO EMESIS UNMEASURED, SMALL, BROWN AMOUNT. MOST RECENT EMESIS 200ML. PT MEDICATED WITH ZOFRAN. ORAL CARE GIVEN AFTER EACH EMESIS, PT REPOSITIONED Q2. X2 BM'S THIS SHIFT, DEE. PT SEEMS COMFORTABLE AND AT REST WHEN NOT VOMITING, ABLE TO SLEEP. OPENS HIS EYE TO VOICE, BUT DOES NOT RESPOND TO QUESTIONS, VERY WEAK AND UNABLE TO TURN SELF. PT AT BED SIDE, VERY ANXIOUS AT TIMES. REVIEWED COMFORT CARE MEASURES WITH , SHE SAID THAT SHE UNDERSTOOD. VITAL SIGNS TAKEN AND FLUIDS RUNNING AT REQUEST OF . WILL CTM AND REPORT TO DAY RN
[2018-05-15 08:45] LABS: BASOPHILS ABSOLUTE AUTO 0.16 K/mm3 (0.00-0.23); BASOPHILS PERCENT AUTO 0 % (0-2); EOSINOPHILS ABSOLUTE AUTO 0.01 K/mm3 (0.00-0.68); EOSINOPHILS PERCENT AUTO 0 % (0-6); Hematocrit 42.8 % (37.0-53.0); Hemoglobin 14.3 g/dL (13.5-17.5); IMMATURE GRAN ABSOLUTE AUTO 0.77 K/mm3 (0.00-0.10); IMMATURE GRAN PERCENT AUTO 2 % (0-1); LYMPHOCYTES ABSOLUTE AUTO 2.11 K/mm3 (0.84-5.20); LYMPHOCYTES PERCENT AUTO 5 % (21-46); MONOCYTES ABSOLUTE AUTO 2.76 K/mm3 (0.16-1.47); MONOCYTES PERCENT AUTO 7 % (4-13); Mean Corpuscular HGB 29.2 pg (26.0-34.0); Mean Corpuscular HGB Conc 33.4 g/dL (31.5-36.5); Mean Corpuscular Volume 87 fL (80-100); Mean Platelet Volume 11.1 fL (9.1-12.4); NEUTROPHILS ABSOLUTE AUTO 36.85 K/mm3 (1.96-9.15); NEUTROPHILS PERCENT AUTO 86 % (41-73); Platelet Count 438 K/mm3 (150-400); RDW Coefficient Variation 15.2 % (11.7-14.2); RDW Standard Deviation 46.8 fL (35.1-46.3); White Blood Cell Count 42.66 K/mm3 (4.00-11.30)
[2018-05-15 09:02] LABS: Bun/Creatinine Ratio 15.7 (12.0-20.0); Calcium, Blood 8.5 mg/dL (8.5-10.1); Creatinine, Blood 2.04 mg/dL (0.60-1.20); Potassium, Blood 3.9 mmol/L (3.5-5.5)
--- NOTE | 2018-05-15 14:42 | NUR ---
Met pt. lying in bed resting, and the spouse in the room pt. seems to be doing much better Encouraged and offered prayers.
--- NOTE | 2018-05-15 16:19 | NUR ---
SHIFT SUMMARY PT RESPONDS MINIMALLY TO SOUND, ANSWERS SOME YES/NO QUESTIONS. PT UNABLE TO FOLLOW COMMANDS. PT HR ELEVATED. SEE VITAL SIGNS. DR FRASER AWARE, NEW ORDERS INITIATED, THOUGH TELE WAS REQUIRED FOR THAT ORDER. TELE IN PLACE AND VERIFIED AT 1538 BY ROSIE PEREZ CNA. RATE CHECKED BY THIS NURSE AT 1601, WHICH WAS SINUS TACH AT 123. PT MEDICATED PER EMAR. AT 1621, PT HR AT 108 PER [employer] PRINTING MACHINIST. PT TACHYPNIC THROUGHOUT THE DAY, DR PAGE AWARE. PT 91% ON RA. R HAND IV INFILTRATED AT 1331. CLINAMIX INFUSING IN L ARM IV. CHARGE NURSE AND DR PAGE AWARE. CHARGE NURSE ATTEMPTED ANOTHER IV WITHOUT SUCCESS. CLINAMIX ON STANDBY WHILE INFUSING PT ANTIBIOTICS AT THIS TIME. AT 0829 PT HAD ONE EPISODE OF EMESIS OF 100ML GREEN FLUID. THERAPEUTIC COMMUNICATION AND ACTIVE LISTENING UTILIZED WHEN SPEAKING WITH FAMILY. SPOUSE PRESENT IN ROOM FOR MOST OF THE DAY, PT UPDATED BY DR PAGE AND MANAGEMENT LIAISON. BED IN LOW POSITION, PT SITTING IN HIGH FOWLERS TO PREVENT ASPIRATION.
--- NOTE | 2018-05-15 16:21 | NUR ---
Austin was semi-responsive with non-verbal gesticulations only. Nazanin was present and watchful. Dr Scott and I met with her to review and discuss [place] tenuous medical picture, the evolving complications, and the probability of a clinical decline. Nazanin expressed understanding and agreement with a flexible care strategy that permits abandoning and forgoing treatments and interventions that become noxious to the patient or disproportionate in nature. It was explained to her that peripheral IV's were becoming increasingly difficult to establish and that installing a central line for managing his care would prove unrealistic at this stage due to the infection and lung puncture risk. Dr Scott said that we would continue to try but might have to soon transition to less agressive, non pharmaceutical support measures i.e comfort care. Nazanin verbalized comprehension and acceptance. I provided additional listening, and encouragemnt and called [place] daughter Lizzie with an update on the case.
--- NOTE | 2018-05-15 18:47 | NUR ---
met with Josh Mendez thei morning to review prognosis and care plan and supportive strategies for pt spouse and family. Review of ethical care for patient that supports physicians and honors the paietnt and [employer] directive 58.
--- NOTE | 2018-05-15 22:51 | NUR ---
REPORT RECIEVED FROM DAY HORTENCIA [facility]. FOR BEDSIDE REPORTING PT SLOW TO WAKE UP AND OPEN EYES, EVENTUALLY DID WILL SOME STERNAL RUBBING BUT DID NOT FOLLOW COMMANDS. VSS AT THIS TIME, PT TACHYCARDIC MD Talia IS AWARE. TELE STABLE. HEAD TO TOE COMPLETED AT 2100, PT MORE AWAKE AT THIS TIME, LOOKING INTO MY EYES, BUT IS NONVERBAL AND DOESN'T FOLLOW COMMANDS. PT TURNED AND CHANGED, SMALL BM. PT AT BEDSIDE. WILL CMT PT STATUS.
--- NOTE | 2018-05-16 05:08 | NUR ---
SUMMARY: SEE SHIFT ASSESSMENT. PT HAS CONTINUED TO BE NONVERBAL, AWAKENS TO VOICE AND TRACKS WITH EYES, NOT FOLLOWING COMMANDS. PT HAD BEEN TURNED Q4, ORAL CARE Q4. NO N/V TONIGHT. PT HAS HAD 2 BM'S DARK MUCUS STOOL. DRESSING PLACED AT BUTTOCK/COCCYX OVER INCONTINENCE EXCORIATION. TELE STABLE, HR HAS TRENDED DOWN THIS SHIFT, THIS AM IN THE 90'S. NO IV LOPRESSOR NEEDED. ALL OTHER VSS THIS SHIFT. PT HAS BEEN KEPT AT 45% ANGLE IN BED. PEG TUBE CONTINUES TO BE CLAMPED. SEEMS TO BE SLIGHT SWELLING AT PT IV SITE THIS AM, ATHOUGH THE IV FLUSHED AND DRAWS BACK, WILL CTM. LLOYD DRAINING. IS ATTENTIVE AT BEDSIDE.
[2018-05-16 09:13] LABS: BASOPHILS ABSOLUTE AUTO 0.12 K/mm3 (0.00-0.23); BASOPHILS PERCENT AUTO 0 % (0-2); EOSINOPHILS PERCENT AUTO 0 % (0-6); Hematocrit 37.6 % (37.0-53.0); Hemoglobin 12.2 g/dL (13.5-17.5); IMMATURE GRAN ABSOLUTE AUTO 0.31 K/mm3 (0.00-0.10); IMMATURE GRAN PERCENT AUTO 1 % (0-1); LYMPHOCYTES ABSOLUTE AUTO 2.32 K/mm3 (0.84-5.20); LYMPHOCYTES PERCENT AUTO 7 % (21-46); MONOCYTES ABSOLUTE AUTO 2.53 K/mm3 (0.16-1.47); MONOCYTES PERCENT AUTO 8 % (4-13); Mean Corpuscular HGB Conc 32.4 g/dL (31.5-36.5); Mean Corpuscular Volume 89 fL (80-100); Mean Platelet Volume 11.7 fL (9.1-12.4); NEUTROPHILS ABSOLUTE AUTO 28.47 K/mm3 (1.96-9.15); NEUTROPHILS PERCENT AUTO 84 % (41-73); Platelet Count 307 K/mm3 (150-400); RDW Coefficient Variation 15.7 % (11.7-14.2); RDW Standard Deviation 49.4 fL (35.1-46.3); Red Blood Cell Count 4.21 M/mm3 (4.30-5.90); White Blood Cell Count 33.85 K/mm3 (4.00-11.30)
[2018-05-16 09:17] LABS: Albumin, Blood 2.4 g/dL (3.4-5.0); Anion Gap 13 mmol/L (6-16); Blood Urea Nitrogen 38 mg/dL (8-24); Bun/Creatinine Ratio 14.6 (12.0-20.0); CO2, Blood 22 mmol/L (21-32); Calcium, Blood 8.5 mg/dL (8.5-10.1); Chloride, Blood 102 mmol/L (98-108); Glomerular Filtration Rate 25 (60-); Glucose, Blood 153 mg/dL (70-99); Magnesium, Blood 1.9 mg/dL (1.6-2.4); Phosphorus, Blood 3.7 mg/dL (2.5-4.9); Potassium, Blood 3.2 mmol/L (3.5-5.5); Sodium, Blood 137 mmol/L (136-145)
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
--- NOTE | 2018-05-16 12:14 | NUR ---
TUBE FEEDING TUBE FEEDING INITIATED AT 25 ML PER HOUR. TUBE FLUSHED WITH H20 PRIOR TO TUBE FEEDINGS AND FLUSHES WITHOUT RESISTANCE
--- NOTE | 2018-05-16 13:12 | NUR ---
0830SPOKE WITH PATIENTS AT BEDSIDE AND TELLING ME THAT SHE KNOWS DON IS NOT GETTING BETTER- VACILLATES BETWEEN SAYING "HE'S DYING" TO ASKING WHEN HE WILL BE GETTING TUBE FEEDINGS STARTED AND HOW THE TUBE FEEDINGS WILL BE GIVEN WHEN HE LEAVES THE HOSPITAL. ANSWERED QUESTIONS AND PROVIDED EMOTIONAL SUPPORT THAT STAFF AT THIS HOSPITAL KNOWS SHE IS DOING HER BEST AT MAKING MEDICAL DECISIONS FOR DON
--- NOTE | 2018-05-16 13:17 | NUR ---
AWAKE XRAY BEING DONE IN ROOM, PATIENT WITH EYES OPEN, MOVES RIGHT ARM TO REACH FOR MY ARM. WHEN ASKED HOW HE IS DOING PATIENT SAID "OK", PATIENT SAYS NO WHEN ASKED IF HE IS HAVING PAIN
--- NOTE | 2018-05-16 13:35 | NUR ---
Pt. is in bed resting the spouse reports that pt. is doing finr ,prayed for pt and blessed him.
--- NOTE | 2018-05-16 17:24 | NUR ---
SUMMARY PATIENT ALERT AT THIS TIME, RAISED ARM TOWARDS ME I WAS ATTEMPTING TO SCAN ARM BAND AND WHEN I ASKED IF HE WAS HELPING ME PATIENT REPLIED YES. PATIENT DENIES PAIN. TOLERATING TUBE FEEDINGS AT 25 ML PER HOUR. NO EMESISS THIS SHIFT, PATIENT DENIES NAUSEA
[2018-05-17 05:48] LABS: Vancomycin, Random 14.6 ug/mL
--- NOTE | 2018-05-17 06:40 | NUR ---
SHIFT SUMMARY PT CONTINUES ON FLOOR FOR ASPIRATION PNEUMONIA. PEG TUBE FEEDING WITH JEVITY CONTINOUS, PT TOLERATING WELL. NO EPISODES OF N/V. RATE INCREASED TO 35ML/HR AT MIDNIGHT. PT CONTINUES TO TOELRATE WELL, RESIDUAL DRAWN THIS AM AROUND 0500 WITH PRACTICALLY NONE, JUST THE 3ML OR SO FROM THE TUBING. PT'S STAYED THE NIGHT WITH HIM. 2 ASSIST FOR REPOSITIONING. PREVENTATIVE MEPILE TO COCCYX AND HEELS. SINUS TACH ON TELE. PT'S LUNGS ARE COARSE T/O. WILL CTM UNTIL PASS TO NEXT SHIFT.
--- NOTE | 2018-05-17 06:50 | NUR ---
recvd bedside report form previous shift RN LILIBETH, pt awake in bed, in room, discussed kangaroo feedings, pt mumbles that he feels "ok" when asked, no signs of n/v, no grimace, bed in lowest position, call light within reach, bed rails up x 3
--- NOTE | 2018-05-17 10:40 | NUR ---
dr busby rounded on pt
--- NOTE | 2018-05-17 12:25 | NUR ---
INCREASED KANGAROO PUMP FEED RATE TO 45 ML/HR PER DIETARY RECOMMENDATIONS AND MD ORDERS. PT WITH NO N/V. MINIMAL RESIDUAL, >25 ML, UPON CHECK. CBG 150. PT RESTING PEACEFULLY, SNORING. FAMILY IN ROOM
--- NOTE | 2018-05-17 17:00 | NUR ---
SHIFT SUMMARY: VSS, NO ACUTE CHANGES. PT APPEARS TO BE RESTING COMFORTABLY, WHEN ASKED QUESTIONS PT ANSWERS WITH QUIET, SOMEWHAT MUMBLED "YES" OR "NO" RESPONSES. PT RECEIVED A BED BATH AND Q2 TURNS/REPOSITIONING, VERY STIFF AND UNABLE TO ASSIST IN TURNS. PT'S IN ROOM DURING THE AFTERNOON. PT WITH NO GRIMACE, APPEARS TO BE SLEEPING T/O SHIFT. PT HAS HICCUPS. KANAGAROO PUMP CONTINUOUS FEED AT 45 ML/HR WITH <20 ML RESIDUAL, NO N/V. BARRIER CREAM TO RECTUM, PROPHYLACTIC MEPILEX APPLIED TO COCCYX AND HEELS.
--- NOTE | 2018-05-17 17:02 | NUR ---
saw pt this morning some hiccups, went home. pt nods yes to some questions. may need prn meds for hiccups if they increase.
--- NOTE | 2018-05-17 17:04 | NUR ---
PT ASKS QUESTIONS REGARDING TUB FEEDS AND AMOUNT PER HR, EXPLAINED ORDER TO INCREASE RATE TO 45 ML/HR. PT CONCERNED ABOUT COMMUNICATION FROM RE: KIDNEY FUNCTION, DISCUSSED WITH HER DISEASE PROCESS,
--- NOTE | 2018-05-17 19:41 | NUR ---
shift summary: vss, no acute changes. dr busby rounded on pt twice today, received orders for dc insulin and q6 chemsticks. pt remained npo, confused, reponded to questions with mumbled "yes" "no" responses. pt appears to be able to sleep, awakens easily, with pt t/o afternoon. kangaroo pump at 45 ml/hr at noon, no n/v, minimal residual. flushed PEG tube x 2. pt received bed bath, had one mucusy BM this am, changed linens. pennington catheter remained patent and draining clear dark yellow liquid, emptied 1L this shift.
[2018-05-18 05:50] LABS: BASOPHILS ABSOLUTE AUTO 0.06 K/mm3 (0.00-0.23); BASOPHILS PERCENT AUTO 0 % (0-2); EOSINOPHILS ABSOLUTE AUTO 0.57 K/mm3 (0.00-0.68); EOSINOPHILS PERCENT AUTO 4 % (0-6); Hematocrit 30.5 % (37.0-53.0); Hemoglobin 9.8 g/dL (13.5-17.5); IMMATURE GRAN ABSOLUTE AUTO 0.11 K/mm3 (0.00-0.10); IMMATURE GRAN PERCENT AUTO 1 % (0-1); LYMPHOCYTES ABSOLUTE AUTO 1.49 K/mm3 (0.84-5.20); LYMPHOCYTES PERCENT AUTO 10 % (21-46); MONOCYTES ABSOLUTE AUTO 1.25 K/mm3 (0.16-1.47); MONOCYTES PERCENT AUTO 9 % (4-13); Mean Corpuscular HGB 29.1 pg (26.0-34.0); Mean Corpuscular HGB Conc 32.1 g/dL (31.5-36.5); Mean Corpuscular Volume 91 fL (80-100); Mean Platelet Volume 10.7 fL (9.1-12.4); NEUTROPHILS ABSOLUTE AUTO 11.02 K/mm3 (1.96-9.15); NEUTROPHILS PERCENT AUTO 76 % (41-73); Platelet Count 242 K/mm3 (150-400); RDW Coefficient Variation 15.9 % (11.7-14.2); RDW Standard Deviation 51.6 fL (35.1-46.3); Red Blood Cell Count 3.37 M/mm3 (4.30-5.90)
[2018-05-18 06:13] LABS: Anion Gap 10 mmol/L (6-16); Blood Urea Nitrogen 22 mg/dL (8-24); Bun/Creatinine Ratio 13.5 (12.0-20.0); CO2, Blood 24 mmol/L (21-32); Chloride, Blood 110 mmol/L (98-108); Creatinine, Blood 1.63 mg/dL (0.60-1.20); Glomerular Filtration Rate 43 (60-); Glucose, Blood 139 mg/dL (70-99); Potassium, Blood 3.2 mmol/L (3.5-5.5); Sodium, Blood 144 mmol/L (136-145); Vancomycin, Random 12.1 ug/mL
--- NOTE | 2018-05-18 06:28 | NUR ---
SHIFT SUMMARY PT REMAINS ON FLOOR FOR TX ASPIRATION PNEUMONIA, UTI, AND PEG TUBE FEEDING. ABX RAN PER ORDERS. HE IS NOW AT THE GOAL RATE OF 45ML/HR CONTINOUS AND THERE IS NO RESIDUAL. PT HAD A GREENISH BM THIS MORNING. REPLACED THE DRESSING AROUND HIS PEG TUBE IT HAD BECOME BLOODY, TUBE DID NOT APPEAR TO BE OUT OF PLACE. REPLACED ABD BINDER. PT RUNNING MAINTENENCE FLUIDS WITH HIS ABX. WILL CTM UNTIL PASS TO NEXT SHIFT.
--- NOTE | 2018-05-18 07:30 | NUR ---
ASSUMED CARE: PT RESTING QUIETLY IN BED AT THIS TIME. NO ACUTE NEEDS OR DISTRESS NOTED
--- NOTE | 2018-05-18 17:45 | NUR ---
PT STARTED COUGHING, SUCTION STARTED, PT THEN BEGAN VOMITING BLOOD, BROWNISH RED COLOR. NO TUBE FEED NOTED FROM THIS, AT LEAST 200CCS. VITALS NOTED WITH HYPERTENSION OF 155/94, HR 140. PT IS NOTED TO BE PALE AND H AND H NOTED TO BE DECREASING OVER PAST FEW DAYS. CHARGE NURSE CALLED TO ROOM. DR PRIETO NOTIFIED. SEE NEW ORDERS.
[2018-05-18 19:12] LABS: Hemoglobin 9.9 g/dL (13.5-17.5)
--- NOTE | 2018-05-18 19:19 | NUR ---
RECHECKED HR AND PT WAS IN 140S. NOTED THAT RESPIRATIONS WERE RAPID IN 30S AND PT HAD APNEIC PAUSE THAT LASTED SEVERAL SECONDS. PT IS PALE BUT OPENS EYES WITH STIMULATION. STILL WAITING ON H AND H DUE TO NEEDING REPEAT BECAUSE OF CLOTTING. CALL TO DR PRIETO. REPORTED TO HER THAT THIS RN FEARS PATIENT IS BEHAVING LIKE HE WILL . THIS RN SUGGESTED THAT SOMEONE COME AND SPEAK WITH PT'S ABOUT COMFORT CARE. THIS RN ATTEMPTED TO SPEAK TO ABOUT COMFORT CARE BUT STATED SHE WANTED TO WAIT FOR H AND H RESULT BEFORE SHE MADE ANY DECISIONS. SEE NEW ORDERS. PRINCIPAL ANDROID DEVELOPER RN STATES SHE WILL GIVE PM PROTONIX. PT'S REMAINS AT BEDSIDE.
--- NOTE | 2018-05-18 22:35 | NUR ---
PT HAD A LARGE BLOODY LIQUID BM. NOTIFIED HOSPITALIST OF SUCH AND UPDATED ON PT STATUS. ORDERED STAT H&H AND PT/INR. VITALS REMAIN ABOUT THE SAME THE BEGINNING OF THE SHIFT FOLLOWING THE VOMITING BLOOD. SEE VITALS. HE REMAINS LETHARGIC. HE IS ALSO HAVING PERIODS OF APNIA EVERY FEW MINUTES THAT LAST 15-20 SECONDS AND THEN HE RETURNS TO TACHYPNIA. ABRIO TO ORDER THE PROTONIX DRIP. WILL START.
[2018-05-18 22:49] LABS: Hematocrit 27.2 % (37.0-53.0); Hemoglobin 8.7 g/dL (13.5-17.5)
[2018-05-18 23:03] LABS: International Normalized Ratio 1.17; Prothrombin Time Results 12.2 Sec (9.7-11.5)
[2018-05-19 04:43] LABS: BASOPHILS PERCENT AUTO 1 % (0-2); EOSINOPHILS ABSOLUTE AUTO 0.42 K/mm3 (0.00-0.68); EOSINOPHILS PERCENT AUTO 2 % (0-6); Hematocrit 28.2 % (37.0-53.0); Hemoglobin 8.9 g/dL (13.5-17.5); IMMATURE GRAN ABSOLUTE AUTO 0.27 K/mm3 (0.00-0.10); IMMATURE GRAN PERCENT AUTO 1 % (0-1); LYMPHOCYTES ABSOLUTE AUTO 2.75 K/mm3 (0.84-5.20); LYMPHOCYTES PERCENT AUTO 14 % (21-46); MONOCYTES PERCENT AUTO 12 % (4-13); Mean Corpuscular HGB 29.4 pg (26.0-34.0); Mean Corpuscular HGB Conc 31.6 g/dL (31.5-36.5); Mean Corpuscular Volume 93 fL (80-100); Mean Platelet Volume 10.7 fL (9.1-12.4); NEUTROPHILS ABSOLUTE AUTO 13.47 K/mm3 (1.96-9.15); NEUTROPHILS PERCENT AUTO 69 % (41-73); Platelet Count 309 K/mm3 (150-400); RDW Coefficient Variation 16.2 % (11.7-14.2); Red Blood Cell Count 3.03 M/mm3 (4.30-5.90); White Blood Cell Count 19.41 K/mm3 (4.00-11.30)
[2018-05-19 04:59] LABS: Bun/Creatinine Ratio 20.3 (12.0-20.0); Calcium, Blood 7.9 mg/dL (8.5-10.1); Creatinine, Blood 1.58 mg/dL (0.60-1.20); Potassium, Blood 3.6 mmol/L (3.5-5.5)
--- NOTE | 2018-05-19 06:31 | NUR ---
SHIFT SUMMARY PT REMAINS ON FLOOR FOR ASPIRATION PNEUMONIA. OVERNIGHT HE HAD 3 EPISODES OF BLOODY DIARRHEA AND ONE EPISODE OF VOMITING BLOOD, ABOUT 100 MLS WITH CLOTS PRESENT. THERE WAS BLOODY DRAINAGE PRESENT WHEN FLUID WAS ASPIRATED FROM HIS PEG TUBE, SO THE FEED WAS STOPPED AND THIS RN CALLED DR. ESPINOZA TO UPDATE. GI CONSULT PUT IN. H&H THIS MORNING WAS ABOUT THE SAME THE 2240 DRAW DESPITE THE BLOODY EMESIS AND 3 EPISODES OF BLOODY DIARRHEA. THE DIARRHEA WAS MOSTLY BLACK WITH RED STREAKS WITH THE LAST TIME BEING THE LEAST AND EXCLUSIVELY BLACK, THE OTHER TWO WERE LARGE WITH BOTH THE OLD BLOOD AND SOME FRESHER LOOKING BLOOD. PROTONIX DRIP WAS STARTED AT 2300 AFTER THE FIRST EPISODE OF BLOODY DIARRHEA. HE IS MORE SOMNOLENT THIS SHIFT, UNABLE TO FOLLOW DIRECTIONS OR MAKE NEEDS KNOWN. HE DOES NOT APPEAR TO BE HAVING PAIN AT THIS TIME. HIS COCCYX HAS BECOME VERY SORE AND RED FROM THE DIARRHEA. NEW COCCYX DRESSING AND PINK CALAZYME CREAM APPLIED TO SITE. PT'S PRESENT T/O THE NIGHT AND THIS MORNING WE HAD A CONVERSATION ABOUT THE NEXT STEPS IN HIS CARE. SHE MAY BE MORE WILLING TO TRANSITION HIM TO COMFORT CARE AT THIS POINT, WILL UPDATE DAY SHIFT AND TRY TO GET THE HOSPITALIST IN TO SEE HIM TODAY TO DISCUSS IT. TELE WAS SINUS TACH THE MAJORITY OF THE NIGHT. HE WAS ALSO HAVING PERIODS OF APNEA EVERY FEW MINUTES WHERE HE STOPS BREATHING FOR 10 OR 15 SECONDS AT A TIME AND THEN CONTINUES TACHYPNEA, THOUGH HE IS NOT DOING THAT MUCH THIS MORNING. CONNER, CHUCKY, AND ALEXIS WERE ALL CONSULTED DURING THIS SHIFT ABOUT THE PATIENT'S CONDITION. TYPE AND SCREEN DRAWN THIS MORNING IN CASE OF TRANSFUSION. WILL CTM UNTIL PASS TO NEXT SHIFT.
--- NOTE | 2018-05-19 13:45 | NUR ---
Pt. is lying in bed resting, unable to respond, talked to the spouse who is always in the room and offered prayers for the pt.
--- NOTE | 2018-05-19 16:06 | NUR ---
Torrey was sleeping, non-rousable and stationary. He appeared calm and free of distress. Nazanin was present at the bedside showing concern and affection. I provided supportive listening, helped her process her emotions, and co-facilitated a discussion with Dr Scott around the benefits of transitioning Don to comfort measures only. Nazanin showed evidence of vacillation but ultimately concluded that it was in Dons best interest to discontinue life preserving efforts. I stayed and offered additional counseling program leader, and inspirational encouragement. Nazanin expressed appreciation and displayed signs of consolability and acceptance.
--- NOTE | 2018-05-19 18:26 | NUR ---
SHIFT SUMMARY PT NONVERBAL, SHAKES HEAD YES TO ACKNOWLEDGE COMMUNICATION. HAS AGREED TO MOVE PT TOWARD COMFORT CARE. GI CONSULT CANCELED. PROTONIX DRIP INFUSING 10 MLS/HR, ABX & NS AT KVO. PT REPOSITIONED T/O SHIFT; HEAVY MAX 2-3 PP. ATTENDS ON; 2 SOFT DARK BROWN BMS. LLOYD PATENT & DRAINING YELLOW URINE, STAT LOCK ON, OFF FLOOR. TELE ST @ 106. ORAL CARE PROVIDED Q4. PEG TUBE FEEDING HALTED. WCTM & TX PER EMAR UNTIL REPORT GIVEN TO ONCOMING BRIDGETT RN.
--- NOTE | 2018-05-20 06:45 | NUR ---
SHIFT SUMMARY HAD A GOOD SHIFT, ABLE TO COMMUNICATE BY NODING HEAD AND CAN WIGGLE TOES AND SHOULDERS. PURPOSEFUL MOVEMENT NOTED TO RIGHT ARM AND HAND. REACHED OUT FOR NURSING'S HAND AFTER REPOSITIONING. SPOUSE STAYED AT BEDSIDE THOUGHOUT SHIFT. REPOSITIONED PER MD ORDERS. DENIES FURTHER NEEDS AT THIS TIME. SAFETY MEASURES IN PLACE. WILL GIVE HAND OFF TO ONCOMING SHIFT USING SBAR DURING BEDSIDE REPORT.
--- NOTE | 2018-05-20 13:44 | NUR ---
Pt. is in bed resting with his eyes open and can talk. encouraged pt. offered prayers f ,
--- NOTE | 2018-05-20 13:52 | NUR ---
Met pt in bed resting and can communicate today encouraged pt prayed and blessed him
--- NOTE | 2018-05-20 17:38 | NUR ---
Spoke with RN for update. Both RN and Palliative Care volunteer report that pt was more alert and interactive today. Currently no one is in the room with pt. He is asleep. HOB elevated and open mouth raspy breathing noted. He does not appear to be in distress. I did not note any nonverbal indicators of pain, anxiety, agitation or distress. RN had administered ativan per eMAR earlier. Pt has clear light to yellow urine in pennington drainage bags. RN reports that peg tube feedings were restarted today at 25ml/hour due to 's insistance and drs orders. Pt cont to have indicators of blood in stool and when checking gastric residuals, per nursing. RN believes plan is for pt to be discharged home with and hospice care. stated to RN that she would have night time cg. I cannot confirm this or who would be providing care. Pt may be getting additional cg thru [facility]. No notes found to indicate what dc plans has [facility]. Case Conferenced with Shamika in CM dept, who will ask CM to reassess and begin dc planning with tomorrow again. Symptoms appear to be well managed with current rx regime at present.
--- NOTE | 2018-05-20 19:29 | NUR ---
SHIFT SUMMARY PT NOW COMFORT CARE. REPOSITIONED T/O SHIFT. PEG TUBE FEEDS AT 25 MLS/HR, NO RESIDUAL RECEIVED BACK. 3 MED-LG DARK BLACK BM'S, SOFT, ATTENDS ON. DISCHARGE PLANNING IS WORKING ON DC HOME ON HOSPICE. REPORT GIVEN TO BRANDIN BURNETT.
--- NOTE | 2018-05-21 06:25 | NUR ---
SHIFT SUMMARY PT OCC OPENED EYES/REACHED WITH HANDS. REPOSITIONED AND ORAL CARE/SPONGE OFFERED Q2. AT BEDSIDE T/O SHIFT; SLEPT IN RECLINER. SCD'S TO BLE'S. PROTONIX GTT PER EMAR. STAT-LOCK FOR LLOYD CATH REPLACED D/T SOILING. ATTENDS DRY T/O SHIFT. NO S/SX OF PAIN/DISCOMFORT OR ORAL SECREATIONS NOTED. RA. WCTM UNTIL REPORT TO DAY SHIFT RN.
--- NOTE | 2018-05-21 11:21 | NUR ---
0930 VISIT. COMFORT CARE ASSESSMENT. PT RESPONDS VERY BRIEFLY TO TACTILE STIMULI WITH OPENING OF EYES BUT QUICKLY FALLS BACK TO SOMNOLENCE. HE IS SUPINE WITH HOB ELEVATED. G-TUBE FEEDING IS RUNNING. AND FICTION AND NONFICTION AUTHOR DISCUSSING MORNING CARE. SHE IS INSISTENT THAT NO ONE HAS BEEN IN THE ROOM FOR HOURS. BOTH RN AND FICTION AND NONFICTION AUTHOR SHOWED EXACTLY WHAT CARE WAS PROVIDED EARLIER THIS AM. I DISCUSSED HOSPICE CARE AT HOME TO WHO HAS TOLD STAFF THAT A HOSPICE CG WOULD BE PRESENT AT HER HOME. EXPLAINED THE INTERMITTENT NATURE OF HOSPICE VISITS AND NEED FOR OTHER SOURCES OF ROUND THE CLOCK CARE. WHEN ATTEMPTING TO DISCUSS COMFORT CARE AND CONCERNS FOR HOME CARE, QUICKLY DIVERTS THE CONVERSATION TO ONGOING PERCEIVED ISSUES WITH PROVIDERS, STAFF AND THE HOSPITAL. SHE TELLS ME PT'S GTUBE "WAS INSERTED WRONG" AND THAT IS WHY THERE HAS BEEN BLOOD IN HIS STOOL AND FOUND IN RESIDUAL CHECKS. I DISCUSSED IN DETAIL WHY WE WOULD NOT WANT TO CONTINUE IV FLUIDS BUT SIMONE REVERTS TO CONVERSATIONS ABOUT A PARTICULAR DR SHE IS UNHAPPY WITH OR ABOUT THE WATER IN HER BASEMENT. 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 ADAMENT THAT SHE DOES NOT WANT PT TRANSFERRED TO ANOTHER FACILITY BUT ALSO HAS A LONG LIST OF WHY PT CANNOT GO HOME. REPORT CALLED TO CM DEPARTMENT WITH INFO FROM MY VISIT WITH AND STAFF. PT SLEPT T/O VISIT. WE WASHED HIS FACE BUT HE HAD JUST BEEN REPOSITIONED.
--- NOTE | 2018-05-21 13:09 | NUR ---
Pt. is in bed and sleeping can not talk like yesterday,spouse is in the room spoke to her and offered prayers to the pt.
--- NOTE | 2018-05-21 18:36 | NUR ---
SUMMARY NO ACUTE CHANGES T/O SHIFT. PT OCCASIONALLY OPENS EYES. HAS HAD HICCUPS PERIODICALLY. AWAITING DOSE OF PO ATIVAN FROM PHARMACY. SPOUSE AT BEDSIDE.
--- NOTE | 2018-05-21 19:00 | NUR ---
PT RESTING COMFORTABLY AT THIS TIME, NO HICCUPS. PRESENT AT BEDSIDE. JEVITY INFUSING PER PEG TUBE. WILL CTM.
--- NOTE | 2018-05-21 19:10 | NUR ---
report given to oncoming shift PT NO LONGER HAS HICCUPS. RESTING COMFORTABLY. DID NOT ADMINISTER ATIVAN PER CLINICAL JUDGMENT.
--- NOTE | 2018-05-21 20:47 | NUR ---
PLACED COCCYX DRESSING FOR TINY OPEN SPOT, REPOSITIONED, CHANGED ATTENDS. STOOL CONTINUES TO BE BLACK. PRESENT IN ROOM. ORAL AND CATH CARE PERFORMED, NYSTATIN TO GROIN. REDNESS HIGHLY IMPROVED. PT SLEEPS EASILY AFTER CARES. WILL CTM.
--- NOTE | 2018-05-21 22:08 | NUR ---
PT RESTING COMFORTABLY AT THIS TIME. AT BEDSIDE. WILL CTM.
--- NOTE | 2018-05-21 23:30 | NUR ---
PT REPOSITIONED, ORAL CARE DONE. NO ACUTE CHANGES.
--- NOTE | 2018-05-22 02:10 | NUR ---
PT APPEARS COMFORTABLE AT THIS TIME. SLEEPING SOUNDLY. ASLEEP AT BEDSIDE.
--- NOTE | 2018-05-22 04:41 | NUR ---
SMALL BLACK BM, DRESSING TO COCCYX CHANGED FOR SOILING. PT REPOSITIONED. PRESENT AT BEDSIDE. ORAL AND CATH CARE PERFORMED.
--- NOTE | 2018-05-22 12:20 | NUR ---
DISCHARGED TO HOSPICE CALLED [facility] TO NOTIFY. DC'D IVS, CATHETERS INTACT. PEG TUBE FLUSHED AND CLAMPED. LEFT UNIT BY ROSE.
--- NOTE | 2018-05-22 13:51 | NUR ---
Pt. went home on hospice , provided both spiritual and emotional support to the spouse and offered prayers fo the pt. and blessed him.
== END 2018-05-22 12:22 | disposition hospice, home (50) | DRG 871 ==
LOC: ER 09:13 → ERHOLD 11:21 → SURS 11:21 → MEDS 11:21 → ICUE 05-04 20:15 → SURS 05-09 20:20
PROVIDERS: Hospitalist; Internal Medicine; Pharmacist; Physician Assistant; Surgery; ADMIT Internal Medicine
PROC: 0DH63UZ Insertion of Feeding Device into Stomach, Percutaneous Approach (ICD-10-PCS; principal; 2018-05-14 13:15)
DX: A41.9 Sepsis, unspecified organism (principal); J69.0 Pneumonitis due to inhalation of food and vomit; G93.41 Metabolic encephalopathy; T83.511A Infection and inflammatory reaction due to indwelling urethral catheter, initial encounter; F02.81 Dementia in other diseases classified elsewhere, unspecified severity, with behavioral disturbance; N17.9 Acute kidney failure, unspecified; G30.9 Alzheimer's disease, unspecified; I10 Essential (primary) hypertension; E03.9 Hypothyroidism, unspecified; E11.51 Type 2 diabetes mellitus with diabetic peripheral angiopathy without gangrene; Z79.82 Long term (current) use of aspirin; E78.5 Hyperlipidemia, unspecified; I69.391 Dysphagia following cerebral infarction; Z87.898 Personal history of other specified conditions; B35.6 Tinea cruris; E83.39 Other disorders of phosphorus metabolism; E87.6 Hypokalemia; I95.9 Hypotension, unspecified; R00.0 Tachycardia, unspecified; Z66 Do not resuscitate; Z51.5 Encounter for palliative care; I69.365 Other paralytic syndrome following cerebral infarction, bilateral; B96.5 Pseudomonas (aeruginosa) (mallei) (pseudomallei) as the cause of diseases classified elsewhere; B95.2 Enterococcus as the cause of diseases classified elsewhere; Z87.891 Personal history of nicotine dependence
CPT/HCPCS: 36415; 36600; 71045; 80048; 80053; 80069; 80202; 81001; 82803; 82947; 83605; 83735; 84100; 84145; 85014; 85018; 85025; 85610; 86850; 86900; 86901; 87040; 87077; 87086; 87186; 87486; 87581; 87633; 87798; 92610; 93005; 93010; 94640; 94760; 96365; 96368; 99285-25; C1769; C9113; J0360; J0456; J0696; J1650; J2405; J2543; J2930; J3370; J7030; J7042; J7050; J7060; J7120